=== PATIENT | female | born 1970 | race Caucasian/White ===

== ENCOUNTER 2016-07-20 09:15 | Emergency (ER) | payer BC, OTHER ==
[~2016-07-20 09:15] MED LIST: AZIT250T3 PO; CEFT500T PO; PERCOCET PO; TYLE325T5 PO; no home medications
[2016-07-20] MEDS ORDERED: KETOROLAC 30 MG/ML VIAL (J1885) As Ordered ONE (10:02)
[2016-07-20 10:28] LABS: BASO # 0.1 K/mm3 (0.0-0.2); BASO % 1.1 % (0.0-1.0); EOS # 0.1 K/mm3 (0.0-0.50); EOS % 1.6 % (0.0-3.0); LARGE UNSTAINED CELL # 0.2 K/mm3 (0.0-0.4); LARGE UNSTAINED CELL % 2.8 % (0.0-4.0); LYMPH # 1.7 K/mm3 (1.5-4.5); LYMPH % 25.9 % (24.0-44.0); MEAN CORPUSCULAR HEMOGLOBIN 27.2 pg (27.0-33.0); MEAN CORPUSCULAR HGB CONC 32.1 g/dl (32.0-36.5); MEAN CORPUSCULAR VOLUME 84.9 fl (80.0-96.0); MONO # 0.4 K/mm3 (0.0-0.8); MONO % 5.5 % (0.0-5.0); NEUTROPHILS # 4.2 K/mm3 (1.8-7.7); NEUTROPHILS % 63.2 % (36.0-66.0); PLATELET COUNT, AUTOMATED 375 k/mm3 (150-450); RED CELL DISTRIBUTION WIDTH 11.9 % (11.5-14.5); WHITE BLOOD COUNT 6.6 K/mm3 (4.0-10.0)
[2016-07-20 10:54] LABS: ALBUMIN 4.2 GM/DL (3.2-5.2); ALKALINE PHOSPHATASE 96 U/L (45-117); ALT/SGPT 12 U/L (12-78); ANION GAP 11 MEQ/L (8-16); AST/SGOT 12 U/L (15-37); BILIRUBIN,TOTAL 0.2 MG/DL (0.2-1.0); BLOOD UREA NITROGEN 12 MG/DL (7-18); CALCIUM LEVEL 9.3 MG/DL (8.5-10.1); CARBON DIOXIDE LEVEL 27 MEQ/L (21-32); CHLORIDE LEVEL 103 MEQ/L (98-107); CREATININE FOR GFR 0.85 MG/DL (0.55-1.02); GLOMERULAR FILTRATION RATE > 60.0 (>58); GLUCOSE, FASTING 86 MG/DL (70-105); POTASSIUM SERUM 3.9 MEQ/L (3.5-5.1); SODIUM LEVEL 141 MEQ/L (136-145); TOTAL PROTEIN 8.4 GM/DL (6.4-8.2)
--- NOTE | 2016-07-20 12:28 | EDDOCDS ---
Physician Documentation [facility] Name: Akua Montano Age: 46 yrs Sex: Female : 1970 Arrival Date: 07/20/2016 Time: 09:15 Bed I2 / M2 Private MD: Unknown Pcp Disposition: 07/20/16 12:15 Discharged to Home/Self Care. Impression: Pelvic and perineal pain - suspect prolapse. - Condition is Stable. - Discharge Instructions: Pelvic Pain, Female, Pelvic Organ Prolapse. - Prescriptions for Diclofenac Sodium 75 mg Oral Tablet, Delayed Release (E.C.) - take 1 tablet by ORAL route 2 times per day; 30 tablet. Tramadol 50 mg Oral Tablet - take 1 tablet by ORAL route 4 times per day As needed MDD: 4 tabs; 20 tablet. - Medication Reconciliation, Local Pharmacy Hours form. - Follow up: Kandace Yang MD; When: Call to arrange an appointment; Reason: Further diagnostic work-up, Recheck today's complaints, Continuance of care, To establish care. - Problem is an ongoing problem. - Symptoms are unchanged. Historical: - Allergies: No known drug Allergies; - Home Meds: 1. ranitidine Unknown Oral daily 2. calcium 600 units daily - PMHx: GERD; - PSHx: left foot surgery; - Social history: Smoking status: Patient states was never smoker of tobacco. No barriers to communication noted, The patient speaks fluent Mongolian, Smoking status: Patient states former smoker of tobacco. - Family history: Not pertinent. - : The pt / caregiver states he / she is not on anticoagulants. Home medication list is obtained from the patient. - Exposure Risk Screening:: None identified. 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 5 in. (165.10 cm); Pain 8/10; 11:21 BP 131 / 77; Pulse 75; Resp 20; Temp 97.1; Pulse Ox 99% ; Pain 4/10; jam1 12:26 BP 120 / 74; Pulse 72; Resp 18; Temp 98; mk4 09:17 Body Mass Index 26.46 (72.12 kg, 165.10 cm) cmb MDM: 09:54 ketorolac 30 mg IM once ordered. btw 09:54 -US Pelvic Non-Ob Complete Ordered. EDMS 09:54 DUPLEX SCAN LIMITED (DOPPLER)+US Ordered. EDMS 09:55 Urinalysis Ordered. EDMS 09:55 CBC with Diff Ordered. EDMS 09:55 Complete Comphrensive Metabolic Ordered. EDMS 09:55 Lactic Acid (Mendoza tube on ice) Ordered. EDMS 09:55 Urine Culture Ordered. EDMS 10:51 Transvaginal NON- US Ordered. EDMS 10:58 Financial registration complete. pm4 11:02 Urinalysis Reviewed. btw 11:02 CBC with Diff Reviewed. btw 11:02 Complete Comphrensive Metabolic Reviewed. btw 11:02 Lactic Acid (Mendoza tube on ice) Reviewed. btw 11:24 [facility] Payment Agreement was scanned into [employer]ue and attached to record. mm15 Administered Medications: 10:14 Drug: ketorolac 30 mg [ketorolac 30 mg/mL (1 mL) injection solution (1 mL)] Route: IM; srm Site: right deltoid; 11:00 Follow up: Response: Pain is decreased mk4 Signatures: Dispatcher [employer] EDMS Kezia Holloway RN Magda Bashir RN RN [facility] Michael Koch PA PA btw Berto Grewal mm15 Arlette Prakash RN RN mk4 Gavin Dawson, Reg Reg pm4 The chart was reviewed and I authenticate all verbal orders and agree with the evaluation and treatment provided.Attachments: 11:24 [facility] Payment Agreement mm15 MTDD
--- NOTE | 2016-07-20 12:28 | EDDOCDS ---
Nurse's Notes [facility] Name: Akua Montano Age: 46 yrs Sex: Female : 1970 Arrival Date: 07/20/2016 Time: 09:15 Bed I2 / M2 Private MD: Unknown Pcp Diagnosis: Pelvic and perineal pain-suspect prolapse Presentation: 07/20 09:29 Presenting complaint: Patient states: she has had a lot pain for 3 weeks - saw Dr. westley Pond at [facility] on Tuesday and he thought her uterus and cervix had dropped - had an internal exam done. Risk factors: the patient reports no vaginal bleeding. Adult Sepsis Screening: The patient does not have new or worsening altered mentation. Patient's respiratory rate is less than 22. Systolic blood pressure is greater than 100. Patient has a qSOFA score of 0- Negative Sepsis Screen. Suicide/Homicide risk assessment- the patient denies having any suicidal and/or homicidal ideations and does not present with any other emotional, behavioral or mental health complaints. Status: Patient is not a family service assistant or dependent. Transition of care: patient was not received from another setting of care. 09:29 Acuity: ANEUDY Level 3 kcs 09:29 Method Of Arrival: Walkin/Carried/Asstd kcs Triage Assessment: 09:34 General: Appears uncomfortable, well developed, well nourished, well groomed, Behavior kcs is cooperative, crying, pleasant. Pain: Location: lower abdomen Pain currently is 8 out of 10 on a pain scale. Pt Declines HIV testing. Neurological: Level of Consciousness is awake, alert. Respiratory: Airway is patent Respiratory effort is even, unlabored, Respiratory pattern is regular, symmetrical. Derm: Skin is intact, is healthy with good turgor, Skin is dry, Skin is normal. 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 ranitidine Unknown Oral daily 2. calcium 600 units daily - PMHx: GERD; - PSHx: left foot surgery; - Social history: Smoking status: Patient states was never smoker of tobacco. No barriers to communication noted, The patient speaks fluent Setswana, Smoking status: Patient states former smoker of tobacco. - Family history: Not pertinent. - : The pt / caregiver states he / she is not on anticoagulants. Home medication list is obtained from the patient. - Exposure Risk Screening:: None identified. Screenin:18 Screening information is obtained from the patient. Fall risk: No risks identified. srm Assistance ADL's: requires no assistance with activities of daily living. Abuse/DV Screen: The patient / caregiver reports he/she is: not in a situation that causes fear, pain or injury. Nutritional screening: No deficits noted. Advance Directives: There is no active DNR order. home support is adequate. Assessment: 10:18 General: Appears in no apparent distress, Behavior is appropriate for age, cooperative. srm Neurological: No deficits noted. Cardiovascular: No deficits noted. Respiratory: No deficits noted. Derm: No deficits noted. 10:18 GI: Abdomen is non- distended. srm 11:58 Reassessment: awaiting re eval by PA. General: Appears in no apparent distress, srm Behavior is appropriate for age, cooperative. Pain: Pain currently is 4 out of 10 on a pain scale. 12:26 General: Appears in no apparent distress, comfortable, Behavior is cooperative. GI: mk4 Bowel sounds present X 4 quads. Abd is soft and non tender. Vital Signs: 09:17 BP 152 / 90; Pulse 99; Resp 18; Temp 98.4(O); Pulse Ox 100% ; Weight 72.12 kg; Height 5 cmb ft. 5 in. (165.10 cm); Pain 8/10; 11:21 BP 131 / 77; Pulse 75; Resp 20; Temp 97.1; Pulse Ox 99% ; Pain 4/10; jam1 12:26 BP 120 / 74; Pulse 72; Resp 18; Temp 98; mk4 09:17 Body Mass Index 26.46 (72.12 kg, 165.10 cm) cmb Vitals: 09:17 Log In Time: July 20, 2016 at 09:14. cmb ED Course: 09:16 Patient visited by Eleonora Lock. cmb 09:16 Unknown Pcp is Private Physician. cmb 09:16 Patient moved to Waiting cmb 09:18 Patient moved to Pre RCE cmb 09:32 Triage Initiated kcs 09:39 Patient moved to Triage 1 kcs 09:41 Michael Koch PA is PHCP. btw 09:41 Teresa Smith MD is Attending Physician. btw 09:41 Patient visited by Michael Koch PA. btw 09:57 Patient moved to I2 / M2 bcj 10:18 The patient / caregiver is instructed regarding the plan of care and ED course. srm Accompanied by Family Member, Patient has correct armband on for positive identification. Bed in low position. Call light in reach. 10:18 Lactic Acid (Mendoza tube on ice) Sent. srm 10:18 Complete Comphrensive Metabolic Sent. srm 10:18 CBC with Diff Sent. srm 10:18 Urine Culture Sent. srm 10:18 Urinalysis Sent. srm 10:19 Patient visited by Magda Montenegro, SUZIE. srm 10:49 Patient moved to Ultrasound br3 11:16 Patient moved to I2 / M2 br3 11:24 [facility] Payment Agreement was scanned into [employer] and attached to record. mm15 11:33 Patient visited by Arlette Prakash RN. mk4 11:58 Patient visited by Magda Montenegro, SUZIE. srm 12:15 Kandace Yang MD is Referral Physician. btw 12:26 No IV's were initiated during this patient's visit. No procedures done that require mk4 assistance. Administered Medications: 10:14 Drug: ketorolac 30 mg [ketorolac 30 mg/mL (1 mL) injection solution (1 mL)] Route: IM; [facility] Site: right deltoid; 11:00 Follow up: Response: Pain is decreased mk4 Order Results: Lab Order: Urinalysis; SPEC'M 07/20/16 10:14 Test: APPEARANCE, URINE; Value: CLEAR; Range: CLEAR; Status: F Test: COLOR, URINE; Value: STRAW; Range: YELLOW; Status: F Test: PH,URINE; Value: 5.0; Range: 5.0-9.0; Units: UNITS; Status: F Test: SPECIFIC GRAVITY URINE AUTO; Value: 1.006; Range: 1.002-1.035; Status: F Test: PROTEIN, URINE AUTO; Value: NEGATIVE; Range: NEGATIVE; Units: mg/dL; Status: F Test: GLUCOSE, URINE (UA) AUTO; Value: NEGATIVE; Range: NEGATIVE; Units: mg/dL; Status: F Test: KETONE, URINE AUTO; Value: NEGATIVE; Range: NEGATIVE; Units: mg/dL; Status: F Test: UROBILINOGEN, URINE AUTO; Value: 0.2; Range: 0.0-2.0; Units: mg/dL; Status: F Test: BILIRUBIN, URINE AUTO; Value: NEGATIVE; Range: NEGATIVE; Status: F Test: NITRITE, URINE AUTO; Value: NEGATIVE; Range: NEGATIVE; Status: F Test: LEUKOCYTE ESTERASE, URINE AUTO; Value: NEGATIVE; Range: NEGATIVE; Status: F Test: BLOOD, URINE BLOOD; Value: 2+; Range: NEGATIVE; Abnormal: Above high normal; Status: F Test: WBC, URINE AUTO; Value: 0; Range: 0-3; Units: /HPF; Status: F Test: RBC, URINE AUTO; Value: 1; Range: 0-3; Units: /HPF; Status: F Test: BACTERIA, URINE AUTO; Value: 1+; Range: NEGATIVE; Abnormal: Above high normal; Status: F Test: SQUAMOUS EPITHELIAL CELL UR AU; Value: 0; Range: 0-6; Units: /HPF; Status: F Test: HYALINE CAST, URINE AUTO; Value: 0; Range: 0-1; Units: /LPF; Status: F Lab Order: CBC with Diff; SPEC'M 07/20/16 10:14 Test: WHITE BLOOD COUNT; Value: 6.6; Range: 4.0-10.0; Units: K/mm3; Status: F Test: RED BLOOD COUNT; Value: 4.98; Range: 4.00-5.40; Units: M/mm3; Status: F Test: HEMOGLOBIN; Value: 13.6; Range: 12.0-16.0; Units: g/dl; Status: F Test: HEMATOCRIT; Value: 42.3; Range: 36.0-47.0; Units: %; Status: F Test: MEAN CORPUSCULAR VOLUME; Value: 84.9; Range: 80.0-96.0; Units: fl; Status: F Test: MEAN CORPUSCULAR HEMOGLOBIN; Value: 27.2; Range: 27.0-33.0; Units: pg; Status: F Test: MEAN CORPUSCULAR HGB CONC; Value: 32.1; Range: 32.0-36.5; Units: g/dl; Status: F Test: RED CELL DISTRIBUTION WIDTH; Value: 11.9; Range: 11.5-14.5; Units: %; Status: F Test: PLATELET COUNT, AUTOMATED; Value: 375; Range: 150-450; Units: k/mm3; Status: F Test: NEUTROPHILS %; Value: 63.2; Range: 36.0-66.0; Units: %; Status: F Test: LYMPH %; Value: 25.9; Range: 24.0-44.0; Units: %; Status: F Test: MONO %; Value: 5.5; Range: 0.0-5.0; Abnormal: Above high normal; Units: %; Status: F Test: EOS %; Value: 1.6; Range: 0.0-3.0; Units: %; Status: F Test: BASO %; Value: 1.1; Range: 0.0-1.0; Abnormal: Above high normal; Units: %; Status: F Test: LARGE UNSTAINED CELL %; Value: 2.8; Range: 0.0-4.0; Units: %; Status: F Test: NEUTROPHILS #; Value: 4.2; Range: 1.8-7.7; Units: K/mm3; Status: F Test: LYMPH #; Value: 1.7; Range: 1.5-4.5; Units: K/mm3; Status: F Test: MONO #; Value: 0.4; Range: 0.0-0.8; Units: K/mm3; Status: F Test: EOS #; Value: 0.1; Range: 0.0-0.50; Units: K/mm3; Status: F Test: BASO #; Value: 0.1; Range: 0.0-0.2; Units: K/mm3; Status: F Test: LARGE UNSTAINED CELL #; Value: 0.2; Range: 0.0-0.4; Units: K/mm3; Status: F Lab Order: Complete Comphrensive Metabolic; SPEC'M 07/20/16 10:14 Test: GLUCOSE, FASTING; Value: 86; Range: 70-105; Units: MG/DL; Status: F Test: BLOOD UREA NITROGEN; Value: 12; Range: 7-18; Units: MG/DL; Status: F Test: CREATININE FOR GFR; Value: 0.85; Range: 0.55-1.02; Units: MG/DL; Status: F Test: GLOMERULAR FILTRATION RATE; Value: > 60.0; Range: >58; Status: F Test: SODIUM LEVEL; Value: 141; Range: 136-145; Units: MEQ/L; Status: F Test: POTASSIUM SERUM; Value: 3.9; Range: 3.5-5.1; Units: MEQ/L; Status: F Test: CHLORIDE LEVEL; Value: 103; Range: 98-107; Units: MEQ/L; Status: F Test: CARBON DIOXIDE LEVEL; Value: 27; Range: 21-32; Units: MEQ/L; Status: F Test: ANION GAP; Value: 11; Range: 8-16; Units: MEQ/L; Status: F Test: CALCIUM LEVEL; Value: 9.3; Range: 8.5-10.1; Units: MG/DL; Status: F Test: AST/SGOT; Value: 12; Range: 15-37; Abnormal: Below low normal; Units: U/L; Status: F Test: ALT/SGPT; Value: 12; Range: 12-78; Units: U/L; Status: F Test: ALKALINE PHOSPHATASE; Value: 96; Range: 45-117; Units: U/L; Status: F Test: BILIRUBIN,TOTAL; Value: 0.2; Range: 0.2-1.0; Units: MG/DL; Status: F Test: TOTAL PROTEIN; Value: 8.4; Range: 6.4-8.2; Abnormal: Above high normal; Units: GM/DL; Status: F Test: ALBUMIN; Value: 4.2; Range: 3.2-5.2; Units: GM/DL; Status: F Test: ALBUMIN/GLOBULIN RATIO; Value: 1.00; Range: 1.00-1.93; Status: F Test Note: ; Units are mL/min/1.73 m2 Chronic Kidney Disease Staging per NKF: Stage I & II GFR >=60 Normal to Mildly Decreased Stage III GFR 30-59 Moderately Decreased Stage IV GFR 15-29 Severely Decreased Stage V GFR <15 Very Little GFR Left ESRD GFR <15 on CIRCULAR [place]ER STONE Lab Order: Lactic Acid (Mendoza tube on ice); SPEC'M 07/20/16 10:14 Test: LACTIC ACID LEVEL, LACTATE; Value: 1.2; Range: 0.4-2.0; Units: MMOL/L; Status: F Outcome: 12:15 Discharge ordered by Provider. btw 12:26 Discharge Assessment: Patient awake, alert and oriented x 3. No cognitive and/or mk4 functional deficits noted. Patient verbalized understanding of disposition instructions. Patient awake and alert. Discharge Assessment: patient administered narcotics - no. The following High Risk Discharge criteria are identified: None. Discharged to home ambulatory. Condition: good Condition: stable. No special radiology studies were completed. Property sent home with patient. 12:28 Patient left the ED. mk4 Signatures: Kezia Holloway, RN RN Velasquez Rose, RN RN Magda Crouch, RN RN Moni Price, BRICK PITCHER BRICK PITCHER jam1 Randee Huang br3 Michael Koch PA PA btEleonora Gibbs Marlynn mm15 Arlette Prakash, RN RN mk4 DIXIE
--- NOTE | 2016-07-20 16:23 | REP ---
PELVIC ULTRASOUND: Real-time sonographic evaluation of the pelvis was performed utilizing transabdominal and endovaginal technique. The bladder measures 3.8 x 5.6 x 2.4 m. The uterus measures 8.2 x 4.5 x 5.8 cm. Endometrium is heterogenous in echotexture with ill-defined margins and tiny cystic areas. Findings may represent adenomyosis. Thickness is 10 mm. The uterus is retroverted. Ovaries are normal in size and echotexture, right ovary measuring 2.4 x 1.1 x 1.4 cm and the left ovary measuring 2.4 x 2.0 x 1.9 cm. There is no adnexal mass. There is no free fluid. There is no torsion with blood flow seen in each ovary with duplex Doppler evaluation, RI of the right ovary 0.63 and left ovary 0.56. IMPRESSION: Endometrium ill-defined with tiny cystic areas, possibly indicating adenomyosis. No adnexal mass or free fluid. No evidence of ovarian torsion. Signed by Adriel Mendoza MD 07/21/2016 05:08 P
--- NOTE | 2016-07-22 13:29 | EDDOCDS ---
Nurse's Notes [facility] Name: Akua Montano Age: 46 yrs Sex: Female : 1970 Arrival Date: 07/20/2016 Time: 09:15 Bed I2 / M2 Private MD: Unknown Pcp Diagnosis: Pelvic and perineal pain-suspect prolapse Presentation: 07/20 09:29 Presenting complaint: Patient states: she has had a lot pain for 3 weeks - saw Dr. westley Pond at [facility] on Tuesday and he thought her uterus and cervix had dropped - had an internal exam done. Risk factors: the patient reports no vaginal bleeding. Adult Sepsis Screening: The patient does not have new or worsening altered mentation. Patient's respiratory rate is less than 22. Systolic blood pressure is greater than 100. Patient has a qSOFA score of 0- Negative Sepsis Screen. Suicide/Homicide risk assessment- the patient denies having any suicidal and/or homicidal ideations and does not present with any other emotional, behavioral or mental health complaints. Status: Patient is not a extension service specialist in charge or dependent. Transition of care: patient was not received from another setting of care. 09:29 Acuity: ANEUYD Level 3 kcs 09:29 Method Of Arrival: Walkin/Carried/Asstd kcs Triage Assessment: 09:34 General: Appears uncomfortable, well developed, well nourished, well groomed, Behavior kcs is cooperative, crying, pleasant. Pain: Location: lower abdomen Pain currently is 8 out of 10 on a pain scale. Pt Declines HIV testing. Neurological: Level of Consciousness is awake, alert. Respiratory: Airway is patent Respiratory effort is even, unlabored, Respiratory pattern is regular, symmetrical. Derm: Skin is intact, is healthy with good turgor, Skin is dry, Skin is normal. 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 ranitidine Unknown Oral daily 2. calcium 600 units daily - PMHx: GERD; - PSHx: left foot surgery; - Social history: Smoking status: Patient states was never smoker of tobacco. No barriers to communication noted, The patient speaks fluent Syriac, Smoking status: Patient states former smoker of tobacco. - Family history: Not pertinent. - : The pt / caregiver states he / she is not on anticoagulants. Home medication list is obtained from the patient. - Exposure Risk Screening:: None identified. Screenin:18 Screening information is obtained from the patient. Fall risk: No risks identified. srm Assistance ADL's: requires no assistance with activities of daily living. Abuse/DV Screen: The patient / caregiver reports he/she is: not in a situation that causes fear, pain or injury. Nutritional screening: No deficits noted. Advance Directives: There is no active DNR order. home support is adequate. Assessment: 10:18 General: Appears in no apparent distress, Behavior is appropriate for age, cooperative. srm Neurological: No deficits noted. Cardiovascular: No deficits noted. Respiratory: No deficits noted. Derm: No deficits noted. 10:18 GI: Abdomen is non- distended. srm 11:58 Reassessment: awaiting re eval by PA. General: Appears in no apparent distress, srm Behavior is appropriate for age, cooperative. Pain: Pain currently is 4 out of 10 on a pain scale. 12:26 General: Appears in no apparent distress, comfortable, Behavior is cooperative. GI: mk4 Bowel sounds present X 4 quads. Abd is soft and non tender. Vital Signs: 09:17 BP 152 / 90; Pulse 99; Resp 18; Temp 98.4(O); Pulse Ox 100% ; Weight 72.12 kg; Height 5 cmb ft. 5 in. (165.10 cm); Pain 8/10; 11:21 BP 131 / 77; Pulse 75; Resp 20; Temp 97.1; Pulse Ox 99% ; Pain 4/10; jam1 12:26 BP 120 / 74; Pulse 72; Resp 18; Temp 98; mk4 09:17 Body Mass Index 26.46 (72.12 kg, 165.10 cm) cmb Vitals: 09:17 Log In Time: July 20, 2016 at 09:14. cmb ED Course: 09:16 Patient visited by Eelonora Lock. cmb 09:16 Unknown Pcp is Private Physician. cmb 09:16 Patient moved to Waiting cmb 09:18 Patient moved to Pre RCE cmb 09:32 Triage Initiated kcs 09:39 Patient moved to Triage 1 kcs 09:41 Michael Koch PA is PHCP. btw 09:41 Teresa Smith MD is Attending Physician. btw 09:41 Patient visited by Michael Koch PA. btw 09:57 Patient moved to I2 / M2 bcj 10:18 The patient / caregiver is instructed regarding the plan of care and ED course. srm Accompanied by Family Member, Patient has correct armband on for positive identification. Bed in low position. Call light in reach. 10:18 Lactic Acid (Mendoza tube on ice) Sent. srm 10:18 Complete Comphrensive Metabolic Sent. srm 10:18 CBC with Diff Sent. srm 10:18 Urine Culture Sent. srm 10:18 Urinalysis Sent. srm 10:19 Patient visited by Magda Montenegro, SUZIE. srm 10:49 Patient moved to Ultrasound br3 11:16 Patient moved to I2 / M2 br3 11:24 [facility] Payment Agreement was scanned into [employer] and attached to record. mm15 11:33 Patient visited by Arlette Prakash RN. mk4 11:58 Patient visited by Magda Montenegro, SUZIE. srm 12:15 Kandace Yang MD is Referral Physician. btw 12:26 No IV's were initiated during this patient's visit. No procedures done that require mk4 assistance. 16:37 -US Pelvic Non-Ob Complete Returned. EDMS 16:37 DUPLEX SCAN LIMITED (DOPPLER)+US Returned. EDMS 16:37 Transvaginal NON- US Returned. EDMS 07/21 12:39 T-Sheet-- Draft Copy was scanned into [employer] and attached to record. gb Administered Medications: 07/20 10:14 Drug: ketorolac 30 mg [ketorolac 30 mg/mL (1 mL) injection solution (1 mL)] Route: IM; [facility] Site: right deltoid; 11:00 Follow up: Response: Pain is decreased mk4 Order Results: Lab Order: Urinalysis; SPEC'M 07/20/16 10:14 Test: APPEARANCE, URINE; Value: CLEAR; Range: CLEAR; Status: F Test: COLOR, URINE; Value: STRAW; Range: YELLOW; Status: F Test: PH,URINE; Value: 5.0; Range: 5.0-9.0; Units: UNITS; Status: F Test: SPECIFIC GRAVITY URINE AUTO; Value: 1.006; Range: 1.002-1.035; Status: F Test: PROTEIN, URINE AUTO; Value: NEGATIVE; Range: NEGATIVE; Units: mg/dL; Status: F Test: GLUCOSE, URINE (UA) AUTO; Value: NEGATIVE; Range: NEGATIVE; Units: mg/dL; Status: F Test: KETONE, URINE AUTO; Value: NEGATIVE; Range: NEGATIVE; Units: mg/dL; Status: F Test: UROBILINOGEN, URINE AUTO; Value: 0.2; Range: 0.0-2.0; Units: mg/dL; Status: F Test: BILIRUBIN, URINE AUTO; Value: NEGATIVE; Range: NEGATIVE; Status: F Test: NITRITE, URINE AUTO; Value: NEGATIVE; Range: NEGATIVE; Status: F Test: LEUKOCYTE ESTERASE, URINE AUTO; Value: NEGATIVE; Range: NEGATIVE; Status: F Test: BLOOD, URINE BLOOD; Value: 2+; Range: NEGATIVE; Abnormal: Above high normal; Status: F Test: WBC, URINE AUTO; Value: 0; Range: 0-3; Units: /HPF; Status: F Test: RBC, URINE AUTO; Value: 1; Range: 0-3; Units: /HPF; Status: F Test: BACTERIA, URINE AUTO; Value: 1+; Range: NEGATIVE; Abnormal: Above high normal; Status: F Test: SQUAMOUS EPITHELIAL CELL UR AU; Value: 0; Range: 0-6; Units: /HPF; Status: F Test: HYALINE CAST, URINE AUTO; Value: 0; Range: 0-1; Units: /LPF; Status: F Lab Order: Urine Culture; SPEC'M 07/20/16 10:14 Test: URINE CULTURE; Value: URINE CULTURE RESULT NO GROWTH; Status: F Lab Order: CBC with Diff; SPEC'M 07/20/16 10:14 Test: WHITE BLOOD COUNT; Value: 6.6; Range: 4.0-10.0; Units: K/mm3; Status: F Test: RED BLOOD COUNT; Value: 4.98; Range: 4.00-5.40; Units: M/mm3; Status: F Test: HEMOGLOBIN; Value: 13.6; Range: 12.0-16.0; Units: g/dl; Status: F Test: HEMATOCRIT; Value: 42.3; Range: 36.0-47.0; Units: %; Status: F Test: MEAN CORPUSCULAR VOLUME; Value: 84.9; Range: 80.0-96.0; Units: fl; Status: F Test: MEAN CORPUSCULAR HEMOGLOBIN; Value: 27.2; Range: 27.0-33.0; Units: pg; Status: F Test: MEAN CORPUSCULAR HGB CONC; Value: 32.1; Range: 32.0-36.5; Units: g/dl; Status: F Test: RED CELL DISTRIBUTION WIDTH; Value: 11.9; Range: 11.5-14.5; Units: %; Status: F Test: PLATELET COUNT, AUTOMATED; Value: 375; Range: 150-450; Units: k/mm3; Status: F Test: NEUTROPHILS %; Value: 63.2; Range: 36.0-66.0; Units: %; Status: F Test: LYMPH %; Value: 25.9; Range: 24.0-44.0; Units: %; Status: F Test: MONO %; Value: 5.5; Range: 0.0-5.0; Abnormal: Above high normal; Units: %; Status: F Test: EOS %; Value: 1.6; Range: 0.0-3.0; Units: %; Status: F Test: BASO %; Value: 1.1; Range: 0.0-1.0; Abnormal: Above high normal; Units: %; Status: F Test: LARGE UNSTAINED CELL %; Value: 2.8; Range: 0.0-4.0; Units: %; Status: F Test: NEUTROPHILS #; Value: 4.2; Range: 1.8-7.7; Units: K/mm3; Status: F Test: LYMPH #; Value: 1.7; Range: 1.5-4.5; Units: K/mm3; Status: F Test: MONO #; Value: 0.4; Range: 0.0-0.8; Units: K/mm3; Status: F Test: EOS #; Value: 0.1; Range: 0.0-0.50; Units: K/mm3; Status: F Test: BASO #; Value: 0.1; Range: 0.0-0.2; Units: K/mm3; Status: F Test: LARGE UNSTAINED CELL #; Value: 0.2; Range: 0.0-0.4; Units: K/mm3; Status: F Lab Order: Complete Comphrensive Metabolic; SPEC'M 07/20/16 10:14 Test: GLUCOSE, FASTING; Value: 86; Range: 70-105; Units: MG/DL; Status: F Test: BLOOD UREA NITROGEN; Value: 12; Range: 7-18; Units: MG/DL; Status: F Test: CREATININE FOR GFR; Value: 0.85; Range: 0.55-1.02; Units: MG/DL; Status: F Test: GLOMERULAR FILTRATION RATE; Value: > 60.0; Range: >58; Status: F Test: SODIUM LEVEL; Value: 141; Range: 136-145; Units: MEQ/L; Status: F Test: POTASSIUM SERUM; Value: 3.9; Range: 3.5-5.1; Units: MEQ/L; Status: F Test: CHLORIDE LEVEL; Value: 103; Range: 98-107; Units: MEQ/L; Status: F Test: CARBON DIOXIDE LEVEL; Value: 27; Range: 21-32; Units: MEQ/L; Status: F Test: ANION GAP; Value: 11; Range: 8-16; Units: MEQ/L; Status: F Test: CALCIUM LEVEL; Value: 9.3; Range: 8.5-10.1; Units: MG/DL; Status: F Test: AST/SGOT; Value: 12; Range: 15-37; Abnormal: Below low normal; Units: U/L; Status: F Test: ALT/SGPT; Value: 12; Range: 12-78; Units: U/L; Status: F Test: ALKALINE PHOSPHATASE; Value: 96; Range: 45-117; Units: U/L; Status: F Test: BILIRUBIN,TOTAL; Value: 0.2; Range: 0.2-1.0; Units: MG/DL; Status: F Test: TOTAL PROTEIN; Value: 8.4; Range: 6.4-8.2; Abnormal: Above high normal; Units: GM/DL; Status: F Test: ALBUMIN; Value: 4.2; Range: 3.2-5.2; Units: GM/DL; Status: F Test: ALBUMIN/GLOBULIN RATIO; Value: 1.00; Range: 1.00-1.93; Status: F Test Note: ; Units are mL/min/1.73 m2 Chronic Kidney Disease Staging per NKF: Stage I & II GFR >=60 Normal to Mildly Decreased Stage III GFR 30-59 Moderately Decreased Stage IV GFR 15-29 Severely Decreased Stage V GFR <15 Very Little GFR Left ESRD GFR <15 on 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 prolapse;Adnexal Pain r/o Torsion; PELVIC ULTRASOUND:; ; Real-time sonographic evaluation of the pelvis was performed utilizing; transabdominal and endovaginal technique.; ; The bladder measures 3.8 x 5.6 x 2.4 m. The uterus measures 8.2 x 4.5 x 5.8 cm.; Endometrium is heterogenous in echotexture with ill-defined margins and tiny; cystic areas. Findings may represent adenomyosis. Thickness is 10 mm. The uterus; is retroverted. Ovaries are normal in size and echotexture, right ovary measuring; 2.4 x 1.1 x 1.4 cm and the left ovary measuring 2.4 x 2.0 x 1.9 cm. There is no; adnexal mass. There is no free fluid. There is no torsion with blood flow seen in; each ovary with duplex Doppler evaluation, RI of the right ovary 0.63 and left; ovary 0.56.; ; IMPRESSION:; ; Endometrium ill-defined with tiny cystic areas, possibly indicating adenomyosis.; ; ; No adnexal mass or free fluid. No evidence of ovarian torsion.; ; ; Signed by; Adriel Mendoza MD 07/21/2016 05:08 P; Radiology Order: DUPLEX SCAN LIMITED (DOPPLER)+US Test: DUPLEX SCAN LIMITED (DOPPLER)+US REASON FOR EXAMINATION: ? prolapse;Adnexal Pain r/o Torsion; PELVIC ULTRASOUND:; ; Real-time sonographic evaluation of the pelvis was performed utilizing; transabdominal and endovaginal technique.; ; The bladder measures 3.8 x 5.6 x 2.4 m. The uterus measures 8.2 x 4.5 x 5.8 cm.; Endometrium is heterogenous in echotexture with ill-defined margins and tiny; cystic areas. Findings may represent adenomyosis. Thickness is 10 mm. The uterus; is retroverted. Ovaries are normal in size and echotexture, right ovary measuring; 2.4 x 1.1 x 1.4 cm and the left ovary measuring 2.4 x 2.0 x 1.9 cm. There is no; adnexal mass. There is no free fluid. There is no torsion with blood flow seen in; each ovary with duplex Doppler evaluation, RI of the right ovary 0.63 and left; ovary 0.56.; ; IMPRESSION:; ; Endometrium ill-defined with tiny cystic areas, possibly indicating adenomyosis.; ; ; No adnexal mass or free fluid. No evidence of ovarian torsion.; ; ; Signed by; Adriel Mendoza MD 07/21/2016 05:08 P; Radiology Order: Transvaginal NON- US Test: Transvaginal NON- US REASON FOR EXAMINATION: EVAL UTERUS AND OVARIES; PELVIC ULTRASOUND:; ; Real-time sonographic evaluation of the pelvis was performed utilizing; transabdominal and endovaginal technique.; ; The bladder measures 3.8 x 5.6 x 2.4 m. The uterus measures 8.2 x 4.5 x 5.8 cm.; Endometrium is heterogenous in echotexture with ill-defined margins and tiny; cystic areas. Findings may represent adenomyosis. Thickness is 10 mm. The uterus; is retroverted. Ovaries are normal in size and echotexture, right ovary measuring; 2.4 x 1.1 x 1.4 cm and the left ovary measuring 2.4 x 2.0 x 1.9 cm. There is no; adnexal mass. There is no free fluid. There is no torsion with blood flow seen in; each ovary with duplex Doppler evaluation, RI of the right ovary 0.63 and left; ovary 0.56.; ; IMPRESSION:; ; Endometrium ill-defined with tiny cystic areas, possibly indicating adenomyosis.; ; ; No adnexal mass or free fluid. No evidence of ovarian torsion.; ; ; Signed by; Adriel Mendoza MD 07/21/2016 05:08 P; Outcome: 12:15 Discharge ordered by Provider. btw 12:26 Discharge Assessment: Patient awake, alert and oriented x 3. No cognitive and/or mk4 functional deficits noted. Patient verbalized understanding of disposition instructions. Patient awake and alert. Discharge Assessment: patient administered narcotics - no. The following High Risk Discharge criteria are identified: None. Discharged to home ambulatory. Condition: good Condition: stable. No special radiology studies were completed. Property sent home with patient. 12:28 Patient left the ED. mk4 Signatures: Dispatcher [employer] EDKezia Schumacher, RN RN Velasquez Rose RN RN bcj Michelson, Staci RN RN Moni Price, LI MAIL TRUCK DRIVER jam1 Kathia Reid, Reg Reg gb Randee Huang br3 Michael Koch PA PA btw Boshart, Chelsea cmb McGrath, Marlynn mm15 Arlette Prakash, RN RN mk4 Chart Complete MTDRamon
--- NOTE | 2016-07-22 13:29 | EDDOCDS ---
Physician Documentation [facility] Name: Akua Montano Age: 46 yrs Sex: Female : 1970 Arrival Date: 07/20/2016 Time: 09:15 Bed I2 / M2 Private MD: Unknown Pcp Disposition: 07/20/16 12:15 Discharged to Home/Self Care. Impression: Pelvic and perineal pain - suspect prolapse. - Condition is Stable. - Discharge Instructions: Pelvic Pain, Female, Pelvic Organ Prolapse. - Prescriptions for Diclofenac Sodium 75 mg Oral Tablet, Delayed Release (E.C.) - take 1 tablet by ORAL route 2 times per day; 30 tablet. Tramadol 50 mg Oral Tablet - take 1 tablet by ORAL route 4 times per day As needed MDD: 4 tabs; 20 tablet. - Medication Reconciliation, Local Pharmacy Hours form. - Follow up: Kandace Yang MD; When: Call to arrange an appointment; Reason: Further diagnostic work-up, Recheck today's complaints, Continuance of care, To establish care. - Problem is an ongoing problem. - Symptoms are unchanged. Historical: - Allergies: No known drug Allergies; - Home Meds: 1. ranitidine Unknown Oral daily 2. calcium 600 units daily - PMHx: GERD; - PSHx: left foot surgery; - Social history: Smoking status: Patient states was never smoker of tobacco. No barriers to communication noted, The patient speaks fluent Divehi, Smoking status: Patient states former smoker of tobacco. - Family history: Not pertinent. - : The pt / caregiver states he / she is not on anticoagulants. Home medication list is obtained from the patient. - Exposure Risk Screening:: None identified. 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 5 in. (165.10 cm); Pain 8/10; 11:21 BP 131 / 77; Pulse 75; Resp 20; Temp 97.1; Pulse Ox 99% ; Pain 4/10; jam1 12:26 BP 120 / 74; Pulse 72; Resp 18; Temp 98; mk4 09:17 Body Mass Index 26.46 (72.12 kg, 165.10 cm) cmb MDM: 09:54 ketorolac 30 mg IM once ordered. btw 09:54 -US Pelvic Non-Ob Complete Ordered. EDMS 09:54 DUPLEX SCAN LIMITED (DOPPLER)+US Ordered. EDMS 09:55 Urinalysis Ordered. EDMS 09:55 CBC with Diff Ordered. EDMS 09:55 Complete Comphrensive Metabolic Ordered. EDMS 09:55 Lactic Acid (Mendoza tube on ice) Ordered. EDMS 09:55 Urine Culture Ordered. EDMS 10:51 Transvaginal NON- US Ordered. EDMS 10:58 Financial registration complete. pm4 11:02 Urinalysis Reviewed. btw 11:02 CBC with Diff Reviewed. btw 11:02 Complete Comphrensive Metabolic Reviewed. btw 11:02 Lactic Acid (Mendoza tube on ice) Reviewed. btw 11:24 [facility] Payment Agreement was scanned into [employer] and attached to record. mm15 07/21 12:39 T-Sheet-- Draft Copy was scanned into [employer] and attached to record. gb Administered Medications: 07/20 10:14 Drug: ketorolac 30 mg [ketorolac 30 mg/mL (1 mL) injection solution (1 mL)] Route: IM; srm Site: right deltoid; 11:00 Follow up: Response: Pain is decreased columba Signatures: Dispatcher [employer] Kezia Kirby RN RN [facility] Magda Montenegro RN RN srm Kathia Reid, Reg Reg gb Michael Koch PA PA btw Berto Grewal mm15 Arlette Prakash RN RN mk4 Gavin Dawson, Reg Reg pm4 The chart was reviewed and I authenticate all verbal orders and agree with the evaluation and treatment provided.Attachments: 11:24 [facility] Payment Agreement mm15 07/21 12:39 T-Sheet-- Draft Copy gb Chart Complete MTDD
--- NOTE | 2016-07-22 13:29 | EDDOCDS ---
Physician Documentation [facility] Name: Akua Montano Age: 46 yrs Sex: Female : 1970 Arrival Date: 07/20/2016 Time: 09:15 Bed I2 / M2 Private MD: Unknown Pcp Disposition: 07/20/16 12:15 Discharged to Home/Self Care. Impression: Pelvic and perineal pain - suspect prolapse. - Condition is Stable. - Discharge Instructions: Pelvic Pain, Female, Pelvic Organ Prolapse. - Prescriptions for Diclofenac Sodium 75 mg Oral Tablet, Delayed Release (E.C.) - take 1 tablet by ORAL route 2 times per day; 30 tablet. Tramadol 50 mg Oral Tablet - take 1 tablet by ORAL route 4 times per day As needed MDD: 4 tabs; 20 tablet. - Medication Reconciliation, Local Pharmacy Hours form. - Follow up: Kandace Yang MD; When: Call to arrange an appointment; Reason: Further diagnostic work-up, Recheck today's complaints, Continuance of care, To establish care. - Problem is an ongoing problem. - Symptoms are unchanged. Historical: - Allergies: No known drug Allergies; - Home Meds: 1. ranitidine Unknown Oral daily 2. calcium 600 units daily - PMHx: GERD; - PSHx: left foot surgery; - Social history: Smoking status: Patient states was never smoker of tobacco. No barriers to communication noted, The patient speaks fluent Albanian, Smoking status: Patient states former smoker of tobacco. - Family history: Not pertinent. - : The pt / caregiver states he / she is not on anticoagulants. Home medication list is obtained from the patient. - Exposure Risk Screening:: None identified. 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 5 in. (165.10 cm); Pain 8/10; 11:21 BP 131 / 77; Pulse 75; Resp 20; Temp 97.1; Pulse Ox 99% ; Pain 4/10; jam1 12:26 BP 120 / 74; Pulse 72; Resp 18; Temp 98; mk4 09:17 Body Mass Index 26.46 (72.12 kg, 165.10 cm) cmb MDM: 09:54 ketorolac 30 mg IM once ordered. btw 09:54 -US Pelvic Non-Ob Complete Ordered. EDMS 09:54 DUPLEX SCAN LIMITED (DOPPLER)+US Ordered. EDMS 09:55 Urinalysis Ordered. EDMS 09:55 CBC with Diff Ordered. EDMS 09:55 Complete Comphrensive Metabolic Ordered. EDMS 09:55 Lactic Acid (Mendoza tube on ice) Ordered. EDMS 09:55 Urine Culture Ordered. EDMS 10:51 Transvaginal NON- US Ordered. EDMS 10:58 Financial registration complete. pm4 11:02 Urinalysis Reviewed. btw 11:02 CBC with Diff Reviewed. btw 11:02 Complete Comphrensive Metabolic Reviewed. btw 11:02 Lactic Acid (Mendoza tube on ice) Reviewed. btw 11:24 [facility] Payment Agreement was scanned into [employer] and attached to record. mm15 07/21 12:39 T-Sheet-- Draft Copy was scanned into [employer] and attached to record. gb Administered Medications: 07/20 10:14 Drug: ketorolac 30 mg [ketorolac 30 mg/mL (1 mL) injection solution (1 mL)] Route: IM; srm Site: right deltoid; 11:00 Follow up: Response: Pain is decreased columba Signatures: Dispatcher [employer] Kezia Kirby RN RN [facility] Magda Montenegro RN RN srm Kathia Reid, Reg Reg gb Michael Koch PA PA btw Berto Grewal mm15 Arlette Prakash RN RN mk4 Gavin Dawson, Reg Reg pm4 The chart was reviewed and I authenticate all verbal orders and agree with the evaluation and treatment provided.Attachments: 11:24 [facility] Payment Agreement mm15 07/21 12:39 T-Sheet-- Draft Copy gb Chart Complete MTDD
--- NOTE | 2016-07-23 21:21 | EDDOCDS ---
Physician Documentation [facility] Name: Akua Montano Age: 46 yrs Sex: Female : 1970 Arrival Date: 07/20/2016 Time: 09:15 Bed I2 / M2 Private MD: Unknown Pcp Disposition: 07/20/16 12:15 Discharged to Home/Self Care. Impression: Pelvic and perineal pain - suspect prolapse. - Condition is Stable. - Discharge Instructions: Pelvic Pain, Female, Pelvic Organ Prolapse. - Prescriptions for Diclofenac Sodium 75 mg Oral Tablet, Delayed Release (E.C.) - take 1 tablet by ORAL route 2 times per day; 30 tablet. Tramadol 50 mg Oral Tablet - take 1 tablet by ORAL route 4 times per day As needed MDD: 4 tabs; 20 tablet. - Medication Reconciliation, Local Pharmacy Hours form. - Follow up: Kandace Loomis MD; When: Call to arrange an appointment; Reason: Further diagnostic work-up, Recheck today's complaints, Continuance of care, To establish care. - Problem is an ongoing problem. - Symptoms are unchanged. Historical: - Allergies: No known drug Allergies; - Home Meds: 1. ranitidine Unknown Oral daily 2. calcium 600 units daily - PMHx: GERD; - PSHx: left foot surgery; - Social history: Smoking status: Patient states was never smoker of tobacco. No barriers to communication noted, The patient speaks fluent French, Smoking status: Patient states former smoker of tobacco. - Family history: Not pertinent. - : The pt / caregiver states he / she is not on anticoagulants. Home medication list is obtained from the patient. - Exposure Risk Screening:: None identified. 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 5 in. (165.10 cm); Pain 8/10; 11:21 BP 131 / 77; Pulse 75; Resp 20; Temp 97.1; Pulse Ox 99% ; Pain 4/10; jam1 12:26 BP 120 / 74; Pulse 72; Resp 18; Temp 98; mk4 09:17 Body Mass Index 26.46 (72.12 kg, 165.10 cm) cmb MDM: 09:54 ketorolac 30 mg IM once ordered. btw 09:54 -US Pelvic Non-Ob Complete Ordered. EDMS 09:54 DUPLEX SCAN LIMITED (DOPPLER)+US Ordered. EDMS 09:55 Urinalysis Ordered. EDMS 09:55 CBC with Diff Ordered. EDMS 09:55 Complete Comphrensive Metabolic Ordered. EDMS 09:55 Lactic Acid (Mendoza tube on ice) Ordered. EDMS 09:55 Urine Culture Ordered. EDMS 10:51 Transvaginal NON- US Ordered. EDMS 10:58 Financial registration complete. pm4 11:02 Urinalysis Reviewed. btw 11:02 CBC with Diff Reviewed. btw 11:02 Complete Comphrensive Metabolic Reviewed. btw 11:02 Lactic Acid (Mendoza tube on ice) Reviewed. btw 11:24 [facility] Payment Agreement was scanned into [employer] and attached to record. mm15 07/21 12:39 T-Sheet-- Draft Copy was scanned into [employer] and attached to record. gb Administered Medications: 07/20 10:14 Drug: ketorolac 30 mg [ketorolac 30 mg/mL (1 mL) injection solution (1 mL)] Route: IM; srm Site: right deltoid; 11:00 Follow up: Response: Pain is decreased 4 Addendum: 07/23/2016 21:20 Radiology Callback: Radiology results faxed to primary care physician/provider. dr jessica loomis faxed formal report of pevlic us for fu nmlg. Signatures: Dispatcher [facility] Nicci Andrea MD MD ml Sleeman, Kacey, RN RN Magda Andersen RN RN [facility] Kathia Reid, Reg Reg gb Michael Koch PA PA btw Berto Grewal mm15 Arlette Prakash RN RN 4 Gavin Dawson, Reg Reg pm4 The chart was reviewed and I authenticate all verbal orders and agree with the evaluation and treatment provided.Attachments: 07/20 11:24 [facility] Payment Agreement mm15 07/21 12:39 T-Sheet-- Draft Copy gb MTDD
--- NOTE | 2016-07-23 21:21 | EDDOCDS ---
Physician Documentation [facility] Name: Akua Montano Age: 46 yrs Sex: Female : 1970 Arrival Date: 07/20/2016 Time: 09:15 Bed I2 / M2 Private MD: Unknown Pcp Disposition: 07/20/16 12:15 Discharged to Home/Self Care. Impression: Pelvic and perineal pain - suspect prolapse. - Condition is Stable. - Discharge Instructions: Pelvic Pain, Female, Pelvic Organ Prolapse. - Prescriptions for Diclofenac Sodium 75 mg Oral Tablet, Delayed Release (E.C.) - take 1 tablet by ORAL route 2 times per day; 30 tablet. Tramadol 50 mg Oral Tablet - take 1 tablet by ORAL route 4 times per day As needed MDD: 4 tabs; 20 tablet. - Medication Reconciliation, Local Pharmacy Hours form. - Follow up: Kandace Loomis MD; When: Call to arrange an appointment; Reason: Further diagnostic work-up, Recheck today's complaints, Continuance of care, To establish care. - Problem is an ongoing problem. - Symptoms are unchanged. Historical: - Allergies: No known drug Allergies; - Home Meds: 1. ranitidine Unknown Oral daily 2. calcium 600 units daily - PMHx: GERD; - PSHx: left foot surgery; - Social history: Smoking status: Patient states was never smoker of tobacco. No barriers to communication noted, The patient speaks fluent Maltese, Smoking status: Patient states former smoker of tobacco. - Family history: Not pertinent. - : The pt / caregiver states he / she is not on anticoagulants. Home medication list is obtained from the patient. - Exposure Risk Screening:: None identified. 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 5 in. (165.10 cm); Pain 8/10; 11:21 BP 131 / 77; Pulse 75; Resp 20; Temp 97.1; Pulse Ox 99% ; Pain 4/10; jam1 12:26 BP 120 / 74; Pulse 72; Resp 18; Temp 98; mk4 09:17 Body Mass Index 26.46 (72.12 kg, 165.10 cm) cmb MDM: 09:54 ketorolac 30 mg IM once ordered. btw 09:54 -US Pelvic Non-Ob Complete Ordered. EDMS 09:54 DUPLEX SCAN LIMITED (DOPPLER)+US Ordered. EDMS 09:55 Urinalysis Ordered. EDMS 09:55 CBC with Diff Ordered. EDMS 09:55 Complete Comphrensive Metabolic Ordered. EDMS 09:55 Lactic Acid (Mendoza tube on ice) Ordered. EDMS 09:55 Urine Culture Ordered. EDMS 10:51 Transvaginal NON- US Ordered. EDMS 10:58 Financial registration complete. pm4 11:02 Urinalysis Reviewed. btw 11:02 CBC with Diff Reviewed. btw 11:02 Complete Comphrensive Metabolic Reviewed. btw 11:02 Lactic Acid (Mendoza tube on ice) Reviewed. btw 11:24 [facility] Payment Agreement was scanned into [employer] and attached to record. mm15 07/21 12:39 T-Sheet-- Draft Copy was scanned into [employer] and attached to record. gb Administered Medications: 07/20 10:14 Drug: ketorolac 30 mg [ketorolac 30 mg/mL (1 mL) injection solution (1 mL)] Route: IM; srm Site: right deltoid; 11:00 Follow up: Response: Pain is decreased 4 Addendum: 07/23/2016 21:20 Radiology Callback: Radiology results faxed to primary care physician/provider. dr jessica loomis faxed formal report of pevlic us for fu nmlg. Signatures: Dispatcher [facility] Nicci Andrea MD MD ml Sleeman, Kacey, RN RN Magda Andersen RN RN [facility] Kathia Reid, Reg Reg gb Michael Koch PA PA btw Berto Grewal mm15 Arlette Prakash RN RN 4 Gavin Dawson, Reg Reg pm4 The chart was reviewed and I authenticate all verbal orders and agree with the evaluation and treatment provided.Attachments: 07/20 11:24 [facility] Payment Agreement mm15 07/21 12:39 T-Sheet-- Draft Copy gb MTDD
--- NOTE | 2016-07-23 21:22 | EDDOCDS ---
Physician Documentation [facility] Name: Akua Montano Age: 46 yrs Sex: Female : 1970 Arrival Date: 07/20/2016 Time: 09:15 Bed I2 / M2 Private MD: Unknown Pcp Disposition: 07/20/16 12:15 Discharged to Home/Self Care. Impression: Pelvic and perineal pain - suspect prolapse. - Condition is Stable. - Discharge Instructions: Pelvic Pain, Female, Pelvic Organ Prolapse. - Prescriptions for Diclofenac Sodium 75 mg Oral Tablet, Delayed Release (E.C.) - take 1 tablet by ORAL route 2 times per day; 30 tablet. Tramadol 50 mg Oral Tablet - take 1 tablet by ORAL route 4 times per day As needed MDD: 4 tabs; 20 tablet. - Medication Reconciliation, Local Pharmacy Hours form. - Follow up: Kandace Loomis MD; When: Call to arrange an appointment; Reason: Further diagnostic work-up, Recheck today's complaints, Continuance of care, To establish care. - Problem is an ongoing problem. - Symptoms are unchanged. Historical: - Allergies: No known drug Allergies; - Home Meds: 1. ranitidine Unknown Oral daily 2. calcium 600 units daily - PMHx: GERD; - PSHx: left foot surgery; - Social history: Smoking status: Patient states was never smoker of tobacco. No barriers to communication noted, The patient speaks fluent Belarusian, Smoking status: Patient states former smoker of tobacco. - Family history: Not pertinent. - : The pt / caregiver states he / she is not on anticoagulants. Home medication list is obtained from the patient. - Exposure Risk Screening:: None identified. 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 5 in. (165.10 cm); Pain 8/10; 11:21 BP 131 / 77; Pulse 75; Resp 20; Temp 97.1; Pulse Ox 99% ; Pain 4/10; jam1 12:26 BP 120 / 74; Pulse 72; Resp 18; Temp 98; mk4 09:17 Body Mass Index 26.46 (72.12 kg, 165.10 cm) cmb MDM: 09:54 ketorolac 30 mg IM once ordered. btw 09:54 -US Pelvic Non-Ob Complete Ordered. EDMS 09:54 DUPLEX SCAN LIMITED (DOPPLER)+US Ordered. EDMS 09:55 Urinalysis Ordered. EDMS 09:55 CBC with Diff Ordered. EDMS 09:55 Complete Comphrensive Metabolic Ordered. EDMS 09:55 Lactic Acid (Mendoza tube on ice) Ordered. EDMS 09:55 Urine Culture Ordered. EDMS 10:51 Transvaginal NON- US Ordered. EDMS 10:58 Financial registration complete. pm4 11:02 Urinalysis Reviewed. btw 11:02 CBC with Diff Reviewed. btw 11:02 Complete Comphrensive Metabolic Reviewed. btw 11:02 Lactic Acid (Mendoza tube on ice) Reviewed. btw 11:24 [facility] Payment Agreement was scanned into [email or web address] and attached to record. mm15 07/21 12:39 T-Sheet-- Draft Copy was scanned into [email or web address] and attached to record. gb Administered Medications: 07/20 10:14 Drug: ketorolac 30 mg [ketorolac 30 mg/mL (1 mL) injection solution (1 mL)] Route: IM; srm Site: right deltoid; 11:00 Follow up: Response: Pain is decreased 4 Addendum: 07/23/2016 21:20 Radiology Callback: Radiology results faxed to primary care physician/provider. dr jessica loomis faxed formal report of pevlic us for fu nmlg. Signatures: Dispatcher [facility] Nicci Andrea MD MD ml Sleeman, Kacey, RN RN Magda Andersen RN RN [facility] Kathia Reid, Reg Reg gb Michael Koch PA PA btw Berto Grewal mm15 Arlette Prakash RN RN 4 Gavin Dawson, Reg Reg pm4 The chart was reviewed and I authenticate all verbal orders and agree with the evaluation and treatment provided.Attachments: 07/20 11:24 [facility] Payment Agreement mm15 07/21 12:39 T-Sheet-- Draft Copy gb Chart Complete MTDD
--- NOTE | 2016-07-23 21:22 | EDDOCDS ---
Physician Documentation [facility] Name: Akua Montano Age: 46 yrs Sex: Female : 1970 Arrival Date: 07/20/2016 Time: 09:15 Bed I2 / M2 Private MD: Unknown Pcp Disposition: 07/20/16 12:15 Discharged to Home/Self Care. Impression: Pelvic and perineal pain - suspect prolapse. - Condition is Stable. - Discharge Instructions: Pelvic Pain, Female, Pelvic Organ Prolapse. - Prescriptions for Diclofenac Sodium 75 mg Oral Tablet, Delayed Release (E.C.) - take 1 tablet by ORAL route 2 times per day; 30 tablet. Tramadol 50 mg Oral Tablet - take 1 tablet by ORAL route 4 times per day As needed MDD: 4 tabs; 20 tablet. - Medication Reconciliation, Local Pharmacy Hours form. - Follow up: Kandace Loomis MD; When: Call to arrange an appointment; Reason: Further diagnostic work-up, Recheck today's complaints, Continuance of care, To establish care. - Problem is an ongoing problem. - Symptoms are unchanged. Historical: - Allergies: No known drug Allergies; - Home Meds: 1. ranitidine Unknown Oral daily 2. calcium 600 units daily - PMHx: GERD; - PSHx: left foot surgery; - Social history: Smoking status: Patient states was never smoker of tobacco. No barriers to communication noted, The patient speaks fluent German, Smoking status: Patient states former smoker of tobacco. - Family history: Not pertinent. - : The pt / caregiver states he / she is not on anticoagulants. Home medication list is obtained from the patient. - Exposure Risk Screening:: None identified. 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 5 in. (165.10 cm); Pain 8/10; 11:21 BP 131 / 77; Pulse 75; Resp 20; Temp 97.1; Pulse Ox 99% ; Pain 4/10; jam1 12:26 BP 120 / 74; Pulse 72; Resp 18; Temp 98; mk4 09:17 Body Mass Index 26.46 (72.12 kg, 165.10 cm) cmb MDM: 09:54 ketorolac 30 mg IM once ordered. btw 09:54 -US Pelvic Non-Ob Complete Ordered. EDMS 09:54 DUPLEX SCAN LIMITED (DOPPLER)+US Ordered. EDMS 09:55 Urinalysis Ordered. EDMS 09:55 CBC with Diff Ordered. EDMS 09:55 Complete Comphrensive Metabolic Ordered. EDMS 09:55 Lactic Acid (Mendoza tube on ice) Ordered. EDMS 09:55 Urine Culture Ordered. EDMS 10:51 Transvaginal NON- US Ordered. EDMS 10:58 Financial registration complete. pm4 11:02 Urinalysis Reviewed. btw 11:02 CBC with Diff Reviewed. btw 11:02 Complete Comphrensive Metabolic Reviewed. btw 11:02 Lactic Acid (Mendoza tube on ice) Reviewed. btw 11:24 [facility] Payment Agreement was scanned into [employer] and attached to record. mm15 07/21 12:39 T-Sheet-- Draft Copy was scanned into [employer] and attached to record. gb Administered Medications: 07/20 10:14 Drug: ketorolac 30 mg [ketorolac 30 mg/mL (1 mL) injection solution (1 mL)] Route: IM; srm Site: right deltoid; 11:00 Follow up: Response: Pain is decreased 4 Addendum: 07/23/2016 21:20 Radiology Callback: Radiology results faxed to primary care physician/provider. dr jessica loomis faxed formal report of pevlic us for fu nmlg. Signatures: Dispatcher [facility] Nicci Andrea MD MD ml Sleeman, Kacey, RN RN Magda Andersen RN RN [facility] Kathia Reid, Reg Reg gb Michael Koch PA PA btw Berto Grewal mm15 Arlette Prakash RN RN 4 Gavin Dawson, Reg Reg pm4 The chart was reviewed and I authenticate all verbal orders and agree with the evaluation and treatment provided.Attachments: 07/20 11:24 [facility] Payment Agreement mm15 07/21 12:39 T-Sheet-- Draft Copy gb Chart Complete MTDD
--- NOTE | 2016-07-23 21:22 | EDDOCDS ---
Nurse's Notes [facility] Name: Akua Montano Age: 46 yrs Sex: Female : 1970 Arrival Date: 07/20/2016 Time: 09:15 Bed I2 / M2 Private MD: Unknown Pcp Diagnosis: Pelvic and perineal pain-suspect prolapse Presentation: 07/20 09:29 Presenting complaint: Patient states: she has had a lot pain for 3 weeks - saw Dr. westley Pond at [facility] on Tuesday and he thought her uterus and cervix had dropped - had an internal exam done. Risk factors: the patient reports no vaginal bleeding. Adult Sepsis Screening: The patient does not have new or worsening altered mentation. Patient's respiratory rate is less than 22. Systolic blood pressure is greater than 100. Patient has a qSOFA score of 0- Negative Sepsis Screen. Suicide/Homicide risk assessment- the patient denies having any suicidal and/or homicidal ideations and does not present with any other emotional, behavioral or mental health complaints. 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 Transition of care: patient was not received from another setting of care. 09:29 Acuity: ANEUDY Level 3 kcs 09:29 Method Of Arrival: Walkin/Carried/Asstd kcs Triage Assessment: 09:34 General: Appears uncomfortable, well developed, well nourished, well groomed, Behavior kcs is cooperative, crying, pleasant. Pain: Location: lower abdomen Pain currently is 8 out of 10 on a pain scale. Pt Declines HIV testing. Neurological: Level of Consciousness is awake, alert. Respiratory: Airway is patent Respiratory effort is even, unlabored, Respiratory pattern is regular, symmetrical. Derm: Skin is intact, is healthy with good turgor, Skin is dry, Skin is normal. 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 ranitidine Unknown Oral daily 2. calcium 600 units daily - PMHx: GERD; - PSHx: left foot surgery; - Social history: Smoking status: Patient states was never smoker of tobacco. No barriers to communication noted, The patient speaks fluent Sinhala, Smoking status: Patient states former smoker of tobacco. - Family history: Not pertinent. - : The pt / caregiver states he / she is not on anticoagulants. Home medication list is obtained from the patient. - Exposure Risk Screening:: None identified. Screenin:18 Screening information is obtained from the patient. Fall risk: No risks identified. srm Assistance ADL's: requires no assistance with activities of daily living. Abuse/DV Screen: The patient / caregiver reports he/she is: not in a situation that causes fear, pain or injury. Nutritional screening: No deficits noted. Advance Directives: There is no active DNR order. home support is adequate. Assessment: 10:18 General: Appears in no apparent distress, Behavior is appropriate for age, cooperative. srm Neurological: No deficits noted. Cardiovascular: No deficits noted. Respiratory: No deficits noted. Derm: No deficits noted. 10:18 GI: Abdomen is non- distended. srm 11:58 Reassessment: awaiting re eval by PA. General: Appears in no apparent distress, srm Behavior is appropriate for age, cooperative. Pain: Pain currently is 4 out of 10 on a pain scale. 12:26 General: Appears in no apparent distress, comfortable, Behavior is cooperative. GI: mk4 Bowel sounds present X 4 quads. Abd is soft and non tender. Vital Signs: 09:17 BP 152 / 90; Pulse 99; Resp 18; Temp 98.4(O); Pulse Ox 100% ; Weight 72.12 kg; Height 5 cmb ft. 5 in. (165.10 cm); Pain 8/10; 11:21 BP 131 / 77; Pulse 75; Resp 20; Temp 97.1; Pulse Ox 99% ; Pain 4/10; jam1 12:26 BP 120 / 74; Pulse 72; Resp 18; Temp 98; mk4 09:17 Body Mass Index 26.46 (72.12 kg, 165.10 cm) cmb Vitals: 09:17 Log In Time: July 20, 2016 at 09:14. cmb ED Course: 09:16 Patient visited by Eleonora Lock. cmb 09:16 Unknown Pcp is Private Physician. cmb 09:16 Patient moved to Waiting cmb 09:18 Patient moved to Pre RCE cmb 09:32 Triage Initiated kcs 09:39 Patient moved to Triage 1 kcs 09:41 Michael Koch PA is PHCP. btw 09:41 Teresa Smith MD is Attending Physician. btw 09:41 Patient visited by Michael Koch PA. btw 09:57 Patient moved to I2 / M2 bcj 10:18 The patient / caregiver is instructed regarding the plan of care and ED course. srm Accompanied by Family Member, Patient has correct armband on for positive identification. Bed in low position. Call light in reach. 10:18 Lactic Acid (Mendoza tube on ice) Sent. srm 10:18 Complete Comphrensive Metabolic Sent. srm 10:18 CBC with Diff Sent. srm 10:18 Urine Culture Sent. srm 10:18 Urinalysis Sent. srm 10:19 Patient visited by Magda Montenegro, SUZIE. srm 10:49 Patient moved to Ultrasound br3 11:16 Patient moved to I2 / M2 br3 11:24 [facility] Payment Agreement was scanned into Gracenote and attached to record. mm15 11:33 Patient visited by Arlette Prakash RN. mk4 11:58 Patient visited by Magda Montenegro, SUZIE. srm 12:15 Kandace Yang MD is Referral Physician. btw 12:26 No IV's were initiated during this patient's visit. No procedures done that require mk4 assistance. 16:37 -US Pelvic Non-Ob Complete Returned. EDMS 16:37 DUPLEX SCAN LIMITED (DOPPLER)+US Returned. EDMS 16:37 Transvaginal NON- US Returned. EDMS 07/21 12:39 T-Sheet-- Draft Copy was scanned into Gracenote and attached to record. gb Administered Medications: 07/20 10:14 Drug: ketorolac 30 mg [ketorolac 30 mg/mL (1 mL) injection solution (1 mL)] Route: IM; [facility] Site: right deltoid; 11:00 Follow up: Response: Pain is decreased mk4 Order Results: Lab Order: Urinalysis; SPEC'M 07/20/16 10:14 Test: APPEARANCE, URINE; Value: CLEAR; Range: CLEAR; Status: F Test: COLOR, URINE; Value: STRAW; Range: YELLOW; Status: F Test: PH,URINE; Value: 5.0; Range: 5.0-9.0; Units: UNITS; Status: F Test: SPECIFIC GRAVITY URINE AUTO; Value: 1.006; Range: 1.002-1.035; Status: F Test: PROTEIN, URINE AUTO; Value: NEGATIVE; Range: NEGATIVE; Units: mg/dL; Status: F Test: GLUCOSE, URINE (UA) AUTO; Value: NEGATIVE; Range: NEGATIVE; Units: mg/dL; Status: F Test: KETONE, URINE AUTO; Value: NEGATIVE; Range: NEGATIVE; Units: mg/dL; Status: F Test: UROBILINOGEN, URINE AUTO; Value: 0.2; Range: 0.0-2.0; Units: mg/dL; Status: F Test: BILIRUBIN, URINE AUTO; Value: NEGATIVE; Range: NEGATIVE; Status: F Test: NITRITE, URINE AUTO; Value: NEGATIVE; Range: NEGATIVE; Status: F Test: LEUKOCYTE ESTERASE, URINE AUTO; Value: NEGATIVE; Range: NEGATIVE; Status: F Test: BLOOD, URINE BLOOD; Value: 2+; Range: NEGATIVE; Abnormal: Above high normal; Status: F Test: WBC, URINE AUTO; Value: 0; Range: 0-3; Units: /HPF; Status: F Test: RBC, URINE AUTO; Value: 1; Range: 0-3; Units: /HPF; Status: F Test: BACTERIA, URINE AUTO; Value: 1+; Range: NEGATIVE; Abnormal: Above high normal; Status: F Test: SQUAMOUS EPITHELIAL CELL UR AU; Value: 0; Range: 0-6; Units: /HPF; Status: F Test: HYALINE CAST, URINE AUTO; Value: 0; Range: 0-1; Units: /LPF; Status: F Lab Order: Urine Culture; SPEC'M 07/20/16 10:14 Test: URINE CULTURE; Value: URINE CULTURE RESULT NO GROWTH; Status: F Lab Order: CBC with Diff; SPEC'M 07/20/16 10:14 Test: WHITE BLOOD COUNT; Value: 6.6; Range: 4.0-10.0; Units: K/mm3; Status: F Test: RED BLOOD COUNT; Value: 4.98; Range: 4.00-5.40; Units: M/mm3; Status: F Test: HEMOGLOBIN; Value: 13.6; Range: 12.0-16.0; Units: g/dl; Status: F Test: HEMATOCRIT; Value: 42.3; Range: 36.0-47.0; Units: %; Status: F Test: MEAN CORPUSCULAR VOLUME; Value: 84.9; Range: 80.0-96.0; Units: fl; Status: F Test: MEAN CORPUSCULAR HEMOGLOBIN; Value: 27.2; Range: 27.0-33.0; Units: pg; Status: F Test: MEAN CORPUSCULAR HGB CONC; Value: 32.1; Range: 32.0-36.5; Units: g/dl; Status: F Test: RED CELL DISTRIBUTION WIDTH; Value: 11.9; Range: 11.5-14.5; Units: %; Status: F Test: PLATELET COUNT, AUTOMATED; Value: 375; Range: 150-450; Units: k/mm3; Status: F Test: NEUTROPHILS %; Value: 63.2; Range: 36.0-66.0; Units: %; Status: F Test: LYMPH %; Value: 25.9; Range: 24.0-44.0; Units: %; Status: F Test: MONO %; Value: 5.5; Range: 0.0-5.0; Abnormal: Above high normal; Units: %; Status: F Test: EOS %; Value: 1.6; Range: 0.0-3.0; Units: %; Status: F Test: BASO %; Value: 1.1; Range: 0.0-1.0; Abnormal: Above high normal; Units: %; Status: F Test: LARGE UNSTAINED CELL %; Value: 2.8; Range: 0.0-4.0; Units: %; Status: F Test: NEUTROPHILS #; Value: 4.2; Range: 1.8-7.7; Units: K/mm3; Status: F Test: LYMPH #; Value: 1.7; Range: 1.5-4.5; Units: K/mm3; Status: F Test: MONO #; Value: 0.4; Range: 0.0-0.8; Units: K/mm3; Status: F Test: EOS #; Value: 0.1; Range: 0.0-0.50; Units: K/mm3; Status: F Test: BASO #; Value: 0.1; Range: 0.0-0.2; Units: K/mm3; Status: F Test: LARGE UNSTAINED CELL #; Value: 0.2; Range: 0.0-0.4; Units: K/mm3; Status: F Lab Order: Complete Comphrensive Metabolic; SPEC'M 07/20/16 10:14 Test: GLUCOSE, FASTING; Value: 86; Range: 70-105; Units: MG/DL; Status: F Test: BLOOD UREA NITROGEN; Value: 12; Range: 7-18; Units: MG/DL; Status: F Test: CREATININE FOR GFR; Value: 0.85; Range: 0.55-1.02; Units: MG/DL; Status: F Test: GLOMERULAR FILTRATION RATE; Value: > 60.0; Range: >58; Status: F Test: SODIUM LEVEL; Value: 141; Range: 136-145; Units: MEQ/L; Status: F Test: POTASSIUM SERUM; Value: 3.9; Range: 3.5-5.1; Units: MEQ/L; Status: F Test: CHLORIDE LEVEL; Value: 103; Range: 98-107; Units: MEQ/L; Status: F Test: CARBON DIOXIDE LEVEL; Value: 27; Range: 21-32; Units: MEQ/L; Status: F Test: ANION GAP; Value: 11; Range: 8-16; Units: MEQ/L; Status: F Test: CALCIUM LEVEL; Value: 9.3; Range: 8.5-10.1; Units: MG/DL; Status: F Test: AST/SGOT; Value: 12; Range: 15-37; Abnormal: Below low normal; Units: U/L; Status: F Test: ALT/SGPT; Value: 12; Range: 12-78; Units: U/L; Status: F Test: ALKALINE PHOSPHATASE; Value: 96; Range: 45-117; Units: U/L; Status: F Test: BILIRUBIN,TOTAL; Value: 0.2; Range: 0.2-1.0; Units: MG/DL; Status: F Test: TOTAL PROTEIN; Value: 8.4; Range: 6.4-8.2; Abnormal: Above high normal; Units: GM/DL; Status: F Test: ALBUMIN; Value: 4.2; Range: 3.2-5.2; Units: GM/DL; Status: F Test: ALBUMIN/GLOBULIN RATIO; Value: 1.00; Range: 1.00-1.93; Status: F Test Note: ; Units are mL/min/1.73 m2 Chronic Kidney Disease Staging per NKF: Stage I & II GFR >=60 Normal to Mildly Decreased Stage III GFR 30-59 Moderately Decreased Stage IV GFR 15-29 Severely Decreased Stage V GFR <15 Very Little GFR Left ESRD GFR <15 on [employer] Lab Order: Lactic Acid (Mendoza tube on ice); ASHLEE'Nathaly 07/20/16 10:14 Test: LACTIC ACID LEVEL, LACTATE; Value: 1.2; Range: 0.4-2.0; Units: MMOL/L; Status: F Radiology Order: -US Pelvic Non-Ob Complete Test: -US Pelvic Non-Ob Complete REASON FOR EXAMINATION: ? prolapse;Adnexal Pain r/o Torsion; PELVIC ULTRASOUND:; ; Real-time sonographic evaluation of the pelvis was performed utilizing; transabdominal and endovaginal technique.; ; The bladder measures 3.8 x 5.6 x 2.4 m. The uterus measures 8.2 x 4.5 x 5.8 cm.; Endometrium is heterogenous in echotexture with ill-defined margins and tiny; cystic areas. Findings may represent adenomyosis. Thickness is 10 mm. The uterus; is retroverted. Ovaries are normal in size and echotexture, right ovary measuring; 2.4 x 1.1 x 1.4 cm and the left ovary measuring 2.4 x 2.0 x 1.9 cm. There is no; adnexal mass. There is no free fluid. There is no torsion with blood flow seen in; each ovary with duplex Doppler evaluation, RI of the right ovary 0.63 and left; ovary 0.56.; ; IMPRESSION:; ; Endometrium ill-defined with tiny cystic areas, possibly indicating adenomyosis.; ; ; No adnexal mass or free fluid. No evidence of ovarian torsion.; ; ; Signed by; Adriel Mendoza MD 07/21/2016 05:08 P; Radiology Order: DUPLEX SCAN LIMITED (DOPPLER)+US Test: DUPLEX SCAN LIMITED (DOPPLER)+US REASON FOR EXAMINATION: ? prolapse;Adnexal Pain r/o Torsion; PELVIC ULTRASOUND:; ; Real-time sonographic evaluation of the pelvis was performed utilizing; transabdominal and endovaginal technique.; ; The bladder measures 3.8 x 5.6 x 2.4 m. The uterus measures 8.2 x 4.5 x 5.8 cm.; Endometrium is heterogenous in echotexture with ill-defined margins and tiny; cystic areas. Findings may represent adenomyosis. Thickness is 10 mm. The uterus; is retroverted. Ovaries are normal in size and echotexture, right ovary measuring; 2.4 x 1.1 x 1.4 cm and the left ovary measuring 2.4 x 2.0 x 1.9 cm. There is no; adnexal mass. There is no free fluid. There is no torsion with blood flow seen in; each ovary with duplex Doppler evaluation, RI of the right ovary 0.63 and left; ovary 0.56.; ; IMPRESSION:; ; Endometrium ill-defined with tiny cystic areas, possibly indicating adenomyosis.; ; ; No adnexal mass or free fluid. No evidence of ovarian torsion.; ; ; Signed by; Adriel Mendoza MD 07/21/2016 05:08 P; Radiology Order: Transvaginal NON- US Test: Transvaginal NON- US REASON FOR EXAMINATION: EVAL UTERUS AND OVARIES; PELVIC ULTRASOUND:; ; Real-time sonographic evaluation of the pelvis was performed utilizing; transabdominal and endovaginal technique.; ; The bladder measures 3.8 x 5.6 x 2.4 m. The uterus measures 8.2 x 4.5 x 5.8 cm.; Endometrium is heterogenous in echotexture with ill-defined margins and tiny; cystic areas. Findings may represent adenomyosis. Thickness is 10 mm. The uterus; is retroverted. Ovaries are normal in size and echotexture, right ovary measuring; 2.4 x 1.1 x 1.4 cm and the left ovary measuring 2.4 x 2.0 x 1.9 cm. There is no; adnexal mass. There is no free fluid. There is no torsion with blood flow seen in; each ovary with duplex Doppler evaluation, RI of the right ovary 0.63 and left; ovary 0.56.; ; IMPRESSION:; ; Endometrium ill-defined with tiny cystic areas, possibly indicating adenomyosis.; ; ; No adnexal mass or free fluid. No evidence of ovarian torsion.; ; ; Signed by; Adriel Mendoza MD 07/21/2016 05:08 P; Outcome: 12:15 Discharge ordered by Provider. btw 12:26 Discharge Assessment: Patient awake, alert and oriented x 3. No cognitive and/or mk4 functional deficits noted. Patient verbalized understanding of disposition instructions. Patient awake and alert. Discharge Assessment: patient administered narcotics - no. The following High Risk Discharge criteria are identified: None. Discharged to home ambulatory. Condition: good Condition: stable. No special radiology studies were completed. Property sent home with patient. 12:28 Patient left the ED. mk4 Signatures: Dispatcher [employer] EDKezia Schumacher, RN RN Velasquez Rose RN RN bcj Michelson, Staci RN RN Moni Price, LI DUST MIXER jam1 Kathia Reid, Reg Reg gb Randee Huang br3 Michael Koch PA PA btw Boshart, Chelsea cmb McGrath, Marlynn mm15 Arlette Prakash, RN RN mk4 Chart Complete MTDRamon
== END 2016-07-20 12:28 | disposition home or self-care (01) ==
LOC: M ED 09:15
DX: R10.2 Pelvic and perineal pain (principal); K21.9 Gastro-esophageal reflux disease without esophagitis; Z79.899 Other long term (current) drug therapy; Z87.891 Personal history of nicotine dependence
CPT/HCPCS: 36415; 76830; 76856; 80053; 81001; 83605; 85025; 87086; 93976; 96372; 99283; J1885

== ENCOUNTER 2017-09-23 16:37 | Emergency (ER) | payer OTHER, MEDICAID ==
[2017-09-23] MEDS: NS 1,000 ML IV (18:40)
[2017-09-23] MEDS: NS 500 ML IV (18:45)
[2017-09-23 19:35] LABS: BASO # 0.1 10^3/uL (0.0-0.2); BASO % 0.7 % (0.0-1.0); EOS # 0.3 10^3/uL (0.0-0.50); EOS % 3.2 % (0.0-3.0); HEMATOCRIT 37.7 % (36.0-47.0); HEMOGLOBIN 12.4 g/dl (12.0-16.0); IMMATURE GRANULOCYTE % 0.2 % (0-3.0); LYMPH # 2.4 10^3/uL (1.5-4.5); MEAN CORPUSCULAR HEMOGLOBIN 28.2 pg (27.0-33.0); MEAN CORPUSCULAR HGB CONC 32.9 g/dl (32.0-36.5); MEAN CORPUSCULAR VOLUME 85.9 fl (80.0-96.0); MONO # 0.6 10^3/uL (0.0-0.8); MONO % 7.8 % (0.0-5.0); NEUTROPHILS # 4.7 10^3/uL (1.8-7.7); NEUTROPHILS % 58.1 % (36.0-66.0); PLATELET COUNT, AUTOMATED 356 10^3/uL (150-450); RED BLOOD COUNT 4.39 10^6/uL (4.00-5.40)
[2017-09-23 19:45] LABS: INR 0.95; PROTHROMBIN TIME 12.7 SECONDS (12.4-14.5)
[2017-09-23 19:46] LABS: PARTIAL THROMBOPLASTIN TIME 31.9 SECONDS (26.8-37.9)
[2017-09-23 19:50] LABS: CONTROL LINE HCG INT CTR LINE PRESENT; HCG, SERUM QUALITATIVE NEGATIVE (NEGATIVE)
[2017-09-23 19:58] LABS: LACTIC ACID SEPSIS PROTOCOL 1.5 MMOL/L (0.4-2.0)
[2017-09-23 19:59] LABS: ALBUMIN 3.9 GM/DL (3.2-5.2); ALBUMIN/GLOBULIN RATIO 1.11 (1.00-1.93); ALKALINE PHOSPHATASE 69 U/L (45-117); ALT/SGPT 17 U/L (12-78); AMYLASE 28 U/L (25-115); ANION GAP 8 MEQ/L (8-16); AST/SGOT 13 U/L (7-37); BILIRUBIN,DIRECT < 0.1 MG/DL (0.0-0.2); BILIRUBIN,TOTAL 0.2 MG/DL (0.2-1.0); BLOOD UREA NITROGEN 9 MG/DL (7-18); CALCIUM LEVEL 8.4 MG/DL (8.5-10.1); CARBON DIOXIDE LEVEL 27 MEQ/L (21-32); CHLORIDE LEVEL 106 MEQ/L (98-107); CPK CREATINE PHOSPHOKINASE 40 U/L (26-192); CREATININE FOR GFR 0.68 MG/DL (0.55-1.30); GLOMERULAR FILTRATION RATE > 60.0 (>58); GLUCOSE, FASTING 79 MG/DL (70-100); LIPASE 78 U/L (73-393); POTASSIUM SERUM 3.2 MEQ/L (3.5-5.1); SODIUM LEVEL 141 MEQ/L (136-145); TOTAL PROTEIN 7.4 GM/DL (6.4-8.2); TROPONIN I < 0.02 NG/ML (< 0.10)
[2017-09-23 20:57] LABS: KETONE, URINE AUTO RFX NEGATIVE (NEGATIVE); LEUKOCYTE ESTERASE UR AUTO RFX NEGATIVE (NEGATIVE); MUCUS, URINE RFX LARGE (NEGATIVE); NITRITE, URINE AUTO RFX NEGATIVE (NEGATIVE); RBC, URINE AUTO RFX 10 /HPF (0-3); SPECIFIC GRAVITY UR AUTO RFX 1.017 (1.002-1.035); SQUAM EPITHELIAL CELL UR AURFX 5 /HPF (0-6); WBC, URINE AUTO RFX 2 /HPF (0-3)
[2017-09-23] MEDS ORDERED: ISOVUE-370 76% 100ML VIAL (Q9967) As Ordered (21:09)
[2017-09-23] MEDS: GI COCKTAIL 50ML BTL(HYOSCYAMINE/MAALOX/LIDOCAINE VISCOUS)(1:3:1) PO (21:22)
[2017-09-23] MEDS: OMEPRAZOLE 20 MG CAP PO (21:23)
== END 2017-09-23 22:18 | disposition home or self-care (01) ==
LOC: M ED 16:37
DX: K29.70 Gastritis, unspecified, without bleeding (principal); K21.9 Gastro-esophageal reflux disease without esophagitis; Z87.891 Personal history of nicotine dependence
CPT/HCPCS: Q9967

== ENCOUNTER 2017-10-28 09:28 | Day surgery (SDC) | payer OTHER, MEDICAID ==
[2017-10-28] MEDS: NS 1,000 ML IV (09:46)
[2017-10-28] MEDS ORDERED: PROPOFOL 200 MG/20 ML VIAL As Ordered ×3 (11:12)
[2017-10-28] MEDS ORDERED: LIDOCAINE 2% INJ 100 MG/5 ML SDV (FOR ANES.) As Ordered (11:12)
== END 2017-10-28 12:08 | disposition home or self-care (01) ==
LOC: M OPP 09:28
DX: K52.9 Noninfective gastroenteritis and colitis, unspecified (principal); K64.8 Other hemorrhoids; K63.5 Polyp of colon; R10.13 Epigastric pain; K29.70 Gastritis, unspecified, without bleeding; K22.8 Other specified diseases of esophagus; K44.9 Diaphragmatic hernia without obstruction or gangrene
CPT/HCPCS: 45380

== ENCOUNTER → 2018-03-29 | Outpatient (REF) | payer OTHER | LOC: M LAB REF 09:27 | DX: J02.9 Acute pharyngitis, unspecified (principal); J20.9 Acute bronchitis, unspecified ==

== ENCOUNTER → 2018-12-31 | Outpatient (REF) | payer OTHER ==
[~2018-12-31] MED LIST changes: +AZIT-12 PO; -AZIT250T3 PO; +CALC500T49 PO; -CEFT500T PO; +CEFT500T3 PO; +NEXI20CA PO; +PRIL20CA9 PO; +SUCR1SS PO; +ZANTTAB PO
== END ==
LOC: M LAB REF 10:40
PROVIDERS: ATTEND Physician Assistant
DX: J02.9 Acute pharyngitis, unspecified (principal)

== ENCOUNTER → 2020-10-10 | Outpatient (CLI) | payer OTHER ==
[~2020-10-10] MED LIST changes: +ZANT150T40 PO; -ZANTTAB PO
== END ==
LOC: M WUC 14:23
PROVIDERS: ATTEND Hospitalist
DX: R53.82 Chronic fatigue, unspecified (principal)

== ENCOUNTER → 2020-10-10 | Outpatient (REF) | payer OTHER | LOC: M SFHCPLAZ 14:04 | PROVIDERS: ATTEND Family Medicine | DX: R53.82 Chronic fatigue, unspecified (principal) ==

== ENCOUNTER → 2020-11-21 | Outpatient (CLI) | payer MEDICAID, OTHER ==
--- NOTE | 2020-11-21 13:13 | REP ---
INDICATION: LEFT BREAST CIARRA DENSITY. COMPARISON: Screening examination 11/11/2020 TECHNIQUE: Diagnostic digital magnified spot compression views of the left breast were obtained in the retroareolar region near 9 o'clock. DBT spot views were also obtained. Diagnostic ultrasonography of the left breast over the region of interest was also obtained FINDINGS: There are 3 lesions seen ultrasonographically. All 3 on the retroareolar 9 o'clock position. Lesion 1 is anechoic measuring 1 cm in its greatest dimension and exhibiting posterior wall enhancement and increased through transmission. This is a simple cyst. Lesion 2 is hypoechoic measuring 6 mm Lesion 3 is hypoechoic measuring 8 mm. Diagnostic mammography shows a persistent nodule retroareolar region at 9 o'clock M best on the DBT spot views. IMPRESSION: 1. There is a simple cyst in the left breast as described above. 2. There are 2 solid nodules in the left breast in the same region as the simple cyst. Biopsy of these 2 solid nodules is recommended. I cannot confirm a mammographic correlate. Certainly, due to the patient's breast density breast MRI could be considered at this time. 3. ACR category 4 4. Shear wave elastography and anatomical intelligent was not ultrasonographically utilized. The reason for this is unknown to me. <Electronically signed by Tim Polanco > 11/21/20 1312
== END ==
LOC: M WHC 11:20
PROVIDERS: ATTEND Hospitalist
DX: R92.2 Inconclusive mammogram (principal)
CPT/HCPCS: 76642; 77065; G0279

== ENCOUNTER → 2020-12-23 | Outpatient (CLI) | payer OTHER ==
[~2020-12-23] MED LIST changes: +NOXI1TAB PO
[2020-12-23 12:09] VITALS: BP 122/82
--- NOTE | 2020-12-23 12:33 | REP ---
INDICATION: R92.8,2 SOLID NODULES LT BREAST,POST US GUIDED BIOPSY. COMPARISON: 11/11/2020, 11/21/2020. TECHNIQUE: ML and CC views left breast performed. FINDINGS: At the site of the nodule in the medial left breast there is an adjacent metallic biopsy clip along the margin of the nodule. Another biopsy clip is seen more posteriorly and superiorly at the site of the 2nd biopsy. IMPRESSION: Two biopsy clips placed at the site of 2 ultrasound-guided biopsies of 2 hypoechoic nodules in the left breast. RECOMMENDATION: Clinical follow-up. <Electronically signed by Adriel Mendoza > 12/23/20 [id number]
--- NOTE | 2020-12-23 20:15 | REP ---
INDICATION: R92.8, 2 SOLID NODULES LT BREAST,US GUIDED BIOPSY. COMPARISON: None. TECHNIQUE: The procedure was performed under the general supervision of Dr. Mendoza. The patient has a history of 3 lesions in the 9 o'clock position of the left breast seen on a previous ultrasound dated 11/21/2020. Lesion 1 is an anechoic nodule measuring 1 cm in its greatest dimension. Lesion 2 is a hypoechoic nodule measuring 6 mm. Lesion 3 is a hypoechoic nodule measuring 8 mm. The risks and benefits of the procedure were explained to the patient and informed consent was obtained. The more inferior lesion in the 9 o'clock position was addressed 1st. The right breast nodule was localized using ultrasound guidance. The skin was prepped and draped in a sterile fashion. 1% Xylocaine was used as a local anesthetic. Using ultrasound guidance a 14 gauge coaxial needle biopsy system was inserted and6 core biopsy samples were obtained. A marker clip (HydroMARK shape 3) was placed at the biopsy site The anechoic nodule was then addressed. Using ultrasound guidance a 22 gauge spinal needle was inserted and advanced into the cyst. A few drops of red colored fluid was withdrawn and sent to the lab for analysis. The cyst appeared to completely collapse. The more superior nodule was then addressed. The right breast nodule was localized using ultrasound guidance. The skin was prepped and draped in a sterile fashion. 1% Xylocaine was used as a local anesthetic. Using ultrasound guidance a 14 gauge coaxial needle biopsy system was inserted and6 core biopsy samples were obtained. A marker clip (HydroMARK shape 4) was placed at the biopsy site The patient tolerated the procedure well and there were no immediate complications. After the appropriate amount of monitored convalescence, the patient was discharged from the department. FINDINGS: None IMPRESSION: Ultrasound-guided left breast biopsy of 2 nodules as well as the aspiration of the cyst. <Electronically signed by Shaka Arana > 12/23/20 1606 <Electronically signed by Adriel Mendoza > 12/23/202011
== END ==
LOC: M WHCPRO 06:45
PROVIDERS: ATTEND Hospitalist
DX: N60.12 Diffuse cystic mastopathy of left breast (principal)

== ENCOUNTER → 2021-01-12 | Outpatient (REF) | payer OTHER ==
[2021-01-12 22:30] LABS: APPEARANCE, URINE CLOUDY (CLEAR); BACTERIA, URINE AUTO 2+ (NEGATIVE); BILIRUBIN, URINE AUTO NEGATIVE (NEGATIVE); BLOOD, URINE BLOOD 3+ (NEGATIVE); COLOR, URINE YELLOW (YELLOW); GLUCOSE, URINE (UA) AUTO NEGATIVE (NEGATIVE); KETONE, URINE AUTO NEGATIVE (NEGATIVE); LEUKOCYTE ESTERASE, URINE AUTO 3+ (NEGATIVE); MUCUS, URINE SMALL (NEGATIVE); NITRITE, URINE AUTO NEGATIVE (NEGATIVE); PROTEIN, URINE AUTO 2+ mg/dL (NEGATIVE); RBC, URINE AUTO 117 /HPF (0-3); SPECIFIC GRAVITY URINE AUTO 1.009 (1.002-1.035); SQUAMOUS EPITHELIAL CELL UR AU 3 /HPF (0-6); UROBILINOGEN, URINE AUTO 0.2 mg/dL (0.0-2.0); WBC, URINE AUTO 151 /HPF (0-3)
== END ==
LOC: M LAB REF 22:05
PROVIDERS: ATTEND Physician Assistant Medical
DX: R30.0 Dysuria (principal)

== ENCOUNTER 2021-11-03 08:04 | Emergency (ER) | payer OTHER ==
[~2021-11-03] VITALS: Ht 165.1 cm; Wt 78.2 kg
[2021-11-03] MEDS ORDERED: IBUP200T46 PO (08:17)
[2021-11-03] MEDS ORDERED: ACETAMINOPHEN 325 MG TAB PO ONE (09:05)
[2021-11-03 09:30] LABS: APPEARANCE, URINE CLEAR (CLEAR); BACTERIA, URINE AUTO 1+ (NEGATIVE); BILIRUBIN, URINE AUTO NEGATIVE (NEGATIVE); BLOOD, URINE BLOOD 1+ (NEGATIVE); COLOR, URINE STRAW (YELLOW); GLUCOSE, URINE (UA) AUTO NEGATIVE (NEGATIVE); KETONE, URINE AUTO NEGATIVE (NEGATIVE); LEUKOCYTE ESTERASE, URINE AUTO NEGATIVE (NEGATIVE); NITRITE, URINE AUTO NEGATIVE (NEGATIVE); PROTEIN, URINE AUTO NEGATIVE (NEGATIVE); RBC, URINE AUTO 1 /HPF (0-3); SPECIFIC GRAVITY URINE AUTO 1.003 (1.002-1.035); SQUAMOUS EPITHELIAL CELL UR AU 0 /HPF (0-6); UROBILINOGEN, URINE AUTO 0.2 mg/dL (0.0-2.0); WBC, URINE AUTO 0 /HPF (0-3)
[2021-11-03] MEDS ORDERED: NAPR-837 PO (09:51)
[2021-11-03] MEDS ORDERED: METH-1164 PO (09:51)
[2021-11-03 09:55] VITALS: BP 112/65
== END 2021-11-03 10:01 | disposition home or self-care (01) ==
LOC: M ED 08:04
DX: M54.50 Low back pain, unspecified (principal); K21.9 Gastro-esophageal reflux disease without esophagitis; Z79.899 Other long term (current) drug therapy

== ENCOUNTER 2021-12-09 09:24 | Emergency (ER) | payer OTHER ==
[~2021-12-09] VITALS: Ht 165.1 cm; Wt 76.0 kg
[~2021-12-09 09:24] MED LIST changes: +IBUP200T46 PO; +METH-1164 PO; +NAPR-837 PO
[2021-12-09 11:51] LABS: BASO # 0.1 10^3/uL (0.0-0.2); BASO % 1.1 % (0.0-1.0); EOS # 0.1 10^3/uL (0.0-0.5); EOS % 1.4 % (0.0-3.0); HEMATOCRIT 41.9 % (36.0-47.0); HEMOGLOBIN 13.5 g/dl (12.0-15.5); LYMPH # 2.1 10^3/uL (1.5-5.0); LYMPH % 22.3 % (24.0-44.0); MEAN CORPUSCULAR HEMOGLOBIN 28.3 pg (27.0-33.0); MEAN CORPUSCULAR HGB CONC 32.2 g/dl (32.0-36.5); MEAN CORPUSCULAR VOLUME 87.8 fl (80.0-96.0); MONO # 0.7 10^3/uL (0.0-0.8); NEUTROPHILS # 6.5 10^3/uL (1.5-8.5); NEUTROPHILS % 67.9 % (36.0-66.0); PLATELET COUNT, AUTOMATED 410 10^3/uL (150-450); RED BLOOD COUNT 4.77 10^6/uL (4.00-5.40); WHITE BLOOD COUNT 9.6 10^3/uL (4.0-10.0)
[2021-12-09] MEDS ORDERED: KETOROLAC 30 MG/ML 1ML VIAL IV ONE (12:10)
[2021-12-09 12:12] LABS: ALBUMIN 3.9 GM/DL (3.2-5.2); ALT/SGPT 19 U/L (12-78); BILIRUBIN,DIRECT < 0.1 MG/DL (0.0-0.2); BILIRUBIN,TOTAL 0.3 MG/DL (0.2-1.0); BLOOD UREA NITROGEN 10 MG/DL (7-18); CALCIUM LEVEL 9.6 MG/DL (8.5-10.1); CARBON DIOXIDE LEVEL 28 MEQ/L (21-32); CHLORIDE LEVEL 105 MEQ/L (98-107); CREATININE FOR GFR 0.78 MG/DL (0.55-1.30); GLOMERULAR FILTRATION RATE > 60.0 (>51); GLUCOSE, FASTING 88 MG/DL (70-100); LIPASE 78 U/L (73-393); SODIUM LEVEL 138 MEQ/L (136-145); TOTAL PROTEIN 8.1 GM/DL (6.4-8.2)
[2021-12-09] MEDS ORDERED: ISOVUE-370 76% 100ML VIAL As Ordered ONE (13:46)
[2021-12-09 15:15] LABS: GC DNA AMPLIFICATION NEGATIVE (NEGATIVE)
[2021-12-09 15:38] VITALS: BP 136/86
== END 2021-12-09 15:41 | disposition home or self-care (01) ==
LOC: M ED 09:34
DX: R10.2 Pelvic and perineal pain (principal); N83.201 Unspecified ovarian cyst, right side
CPT/HCPCS: 74177; 76856; 80048; 80076; 81001; 83690; 85025; 87210; 87661; 87810; 87850; 93976; 96374; 99284; J1885; Q9967

== ENCOUNTER → 2021-12-16 | Outpatient (CLI) | payer OTHER ==
[2021-12-16 14:06] LABS: APPEARANCE, URINE CLEAR (CLEAR); BACTERIA, URINE AUTO 1+ (NEGATIVE); BILIRUBIN, URINE AUTO NEGATIVE (NEGATIVE); BLOOD, URINE BLOOD 1+ (NEGATIVE); COLOR, URINE COLORLESS (YELLOW); GLUCOSE, URINE (UA) AUTO NEGATIVE (NEGATIVE); KETONE, URINE AUTO NEGATIVE (NEGATIVE); LEUKOCYTE ESTERASE, URINE AUTO NEGATIVE (NEGATIVE); NITRITE, URINE AUTO NEGATIVE (NEGATIVE); PROTEIN, URINE AUTO NEGATIVE (NEGATIVE); RBC, URINE AUTO 1 /HPF (0-3); SPECIFIC GRAVITY URINE AUTO 1.002 (1.002-1.035); SQUAMOUS EPITHELIAL CELL UR AU 0 /HPF (0-6); UROBILINOGEN, URINE AUTO 0.2 mg/dL (0.0-2.0); WBC, URINE AUTO 0 /HPF (0-3)
== END ==
LOC: M PLALAB 09:29
PROVIDERS: ATTEND Student in an Organized Health Care Education/Training Program
DX: R31.29 Other microscopic hematuria (principal)

== ENCOUNTER → 2021-12-17 | Outpatient (REF) | payer OTHER ==
[2021-12-17 17:16] LABS: APPEARANCE, URINE CLEAR (CLEAR); BACTERIA, URINE AUTO NEGATIVE (NEGATIVE); BILIRUBIN, URINE AUTO NEGATIVE (NEGATIVE); BLOOD, URINE BLOOD 2+ (NEGATIVE); COLOR, URINE STRAW (YELLOW); GLUCOSE, URINE (UA) AUTO NEGATIVE (NEGATIVE); KETONE, URINE AUTO NEGATIVE (NEGATIVE); LEUKOCYTE ESTERASE, URINE AUTO NEGATIVE (NEGATIVE); NITRITE, URINE AUTO NEGATIVE (NEGATIVE); PROTEIN, URINE AUTO NEGATIVE (NEGATIVE); RBC, URINE AUTO 1 /HPF (0-3); SPECIFIC GRAVITY URINE AUTO 1.004 (1.002-1.035); SQUAMOUS EPITHELIAL CELL UR AU 1 /HPF (0-6); UROBILINOGEN, URINE AUTO 0.2 mg/dL (0.0-2.0); WBC, URINE AUTO 1 /HPF (0-3)
== END ==
LOC: M SMT 16:56
PROVIDERS: ATTEND Physician Assistant
DX: R31.29 Other microscopic hematuria (principal)

== ENCOUNTER → 2022-01-06 | Outpatient (CLI) | payer OTHER ==
[2022-01-06 10:55] LABS: BASO # 0.1 10^3/uL (0.0-0.2); BASO % 1.3 % (0.0-1.0); EOS # 0.2 10^3/uL (0.0-0.5); EOS % 3.1 % (0.0-3.0); HEMOGLOBIN 12.9 g/dl (12.0-15.5); LYMPH # 1.6 10^3/uL (1.5-5.0); MEAN CORPUSCULAR HEMOGLOBIN 28.8 pg (27.0-33.0); MEAN CORPUSCULAR HGB CONC 32.3 g/dl (32.0-36.5); MEAN CORPUSCULAR VOLUME 89.3 fl (80.0-96.0); MONO # 0.7 10^3/uL (0.0-0.8); MONO % 8.7 % (2.0-8.0); NEUTROPHILS # 4.8 10^3/uL (1.5-8.5); NEUTROPHILS % 64.6 % (36.0-66.0); PLATELET COUNT, AUTOMATED 341 10^3/uL (150-450); RED BLOOD COUNT 4.48 10^6/uL (4.00-5.40); WHITE BLOOD COUNT 7.4 10^3/uL (4.0-10.0)
[2022-01-06 11:31] LABS: BLOOD UREA NITROGEN 11 MG/DL (7-18); CARBON DIOXIDE LEVEL 27 MEQ/L (21-32); CHLORIDE LEVEL 105 MEQ/L (98-107); CHOLESTEROL LEVEL 229 MG/DL (<200); CHOLESTEROL RISK RATIO 3.634 (<5); CREATININE FOR GFR 0.65 MG/DL (0.55-1.30); GLOMERULAR FILTRATION RATE > 60.0 (>51); GLUCOSE, FASTING 78 MG/DL (70-100); HDL CHOLESTEROL 63 MG/DL (>40); LDL CHOLESTEROL 132 MG/DL (<100); NON-HDL-C 166 MG/DL; POTASSIUM SERUM 4.4 MEQ/L (3.5-5.1); SODIUM LEVEL 140 MEQ/L (136-145); TRIGLYCERIDES LEVEL 171 MG/DL (<150)
[2022-01-06 13:11] LABS: HEMOGLOBIN A1c 5.2 %
== END ==
LOC: M PLALAB 08:27
PROVIDERS: ATTEND Student in an Organized Health Care Education/Training Program
DX: Z00.00 Encounter for general adult medical examination without abnormal findings (principal)

== ENCOUNTER → 2022-06-03 | Outpatient (CLI) | payer OTHER ==
[2022-06-03 11:12] LABS: APPEARANCE, URINE MANUAL CLEAR (CLEAR); COLOR, URINE MANUAL YELLOW (YELLOW); SPECIFIC GRAVITY,URINE MANUAL 1.002 (1.002-1.035)
[2022-06-03 11:14] LABS: MEAN CORPUSCULAR HEMOGLOBIN 28.2 pg (27.0-33.0); MEAN CORPUSCULAR HGB CONC 31.7 g/dl (32.0-36.5); MEAN CORPUSCULAR VOLUME 88.9 fl (80.0-96.0); PLATELET COUNT, AUTOMATED 382 10^3/uL (150-450); RED BLOOD COUNT 4.61 10^6/uL (4.00-5.40); WHITE BLOOD COUNT 7.3 10^3/uL (4.0-10.0)
[2022-06-03 11:29] LABS: BILIRUBIN, URINE MANUAL NEGATIVE (NEGATIVE); GLUCOSE, URINE (UA) MANUAL NEGATIVE (NEGATIVE); KETONE, URINE MANUAL NEGATIVE (NEGATIVE); LEUKOCYTE ESTERASE, URINE MAN NEGATIVE (NEGATIVE); NITRITE, URINE MANUAL NEGATIVE (NEGATIVE); PROTEIN, URINE MANUAL NEGATIVE (NEGATIVE); UROBILINOGEN, URINE MANUAL NORMAL (NORMAL)
[2022-06-03 11:30] LABS: BLOOD URINE MANUAL TRACE (NEGATIVE)
[2022-06-03 12:14] LABS: BLOOD UREA NITROGEN 10 MG/DL (9-23); CALCIUM LEVEL 9.8 MG/DL (8.5-10.1); CARBON DIOXIDE LEVEL 27 MMOL/L (20-31); CHLORIDE LEVEL 104 MMOL/L (98-107); CREATININE FOR GFR 0.72 MG/DL (0.55-1.30); GLOMERULAR FILTRATION RATE > 60.0 (>51); GLUCOSE, FASTING 82 MG/DL (60-100); POTASSIUM SERUM 4.2 MMOL/L (3.5-5.1); SODIUM LEVEL 141 MMOL/L (136-145)
[2022-06-03 21:47] LABS: RBC, URINE 0-1 /hpf (0-3); SQUAMOUS EPITHELIAL CELL URINE SMALL AMOUNT /hpf (SMALL AMT); WBC, URINE 0-1 /hpf (0-3)
[2022-06-03 21:48] LABS: BACTERIA, URINE SMALL AMOUNT; HYALINE CAST, URINE NONE SEEN /lpf (0-1)
== END ==
LOC: M PLALAB 08:32
PROVIDERS: ATTEND Student in an Organized Health Care Education/Training Program
DX: Z01.818 Encounter for other preprocedural examination (principal)

== ENCOUNTER → 2023-01-28 | Outpatient (CLI) | payer OTHER ==
[2023-01-28 13:51] LABS: BASO # 0.2 10^3/uL (0.0-0.2); BASO % 1.9 % (0.0-1.0); EOS # 0.3 10^3/uL (0.0-0.5); EOS % 3.5 % (0.0-3.0); HEMATOCRIT 39.7 % (36.0-47.0); HEMOGLOBIN 12.6 g/dl (12.0-15.5); LYMPH # 2.8 10^3/uL (1.5-5.0); LYMPH % 34.2 % (24.0-44.0); MEAN CORPUSCULAR HEMOGLOBIN 28.8 pg (27.0-33.0); MEAN CORPUSCULAR HGB CONC 31.7 g/dl (32.0-36.5); MEAN CORPUSCULAR VOLUME 90.6 fl (80.0-96.0); MONO # 0.5 10^3/uL (0.0-0.8); MONO % 6.7 % (2.0-8.0); NEUTROPHILS # 4.3 10^3/uL (1.5-8.5); NEUTROPHILS % 53.5 % (36.0-66.0); PLATELET COUNT, AUTOMATED 341 10^3/uL (150-450); RED BLOOD COUNT 4.38 10^6/uL (4.00-5.40); WHITE BLOOD COUNT 8.1 10^3/uL (4.0-10.0)
[2023-01-28 14:29] LABS: CHOLESTEROL RISK RATIO 2.54 (<5); HDL CHOLESTEROL 81.8 MG/DL (>40); LDL CHOLESTEROL 109.6 MG/DL (<100); NON-HDL-C 126.2 MG/DL
[2023-01-28 14:35] LABS: THYROID STIMULATING HORMONE 1.208 uIU/ML (0.55-4.78)
== END ==
LOC: M PLALAB 11:28
PROVIDERS: ATTEND Student in an Organized Health Care Education/Training Program
DX: Z13.220 Encounter for screening for lipoid disorders (principal)

== ENCOUNTER → 2023-09-05 | Outpatient (CLI) | payer OTHER ==
[2023-09-05 15:58] LABS: APPEARANCE, URINE CLEAR (CLEAR); BACTERIA, URINE AUTO NEGATIVE (NEGATIVE); BILIRUBIN, URINE AUTO NEGATIVE (NEGATIVE); BLOOD, URINE BLOOD NEGATIVE (NEGATIVE); COLOR, URINE COLORLESS (YELLOW); GLUCOSE, URINE (UA) AUTO NEGATIVE (NEGATIVE); KETONE, URINE AUTO NEGATIVE (NEGATIVE); LEUKOCYTE ESTERASE, URINE AUTO NEGATIVE (NEGATIVE); NITRITE, URINE AUTO NEGATIVE (NEGATIVE); PROTEIN, URINE AUTO NEGATIVE (NEGATIVE); RBC, URINE AUTO 1 /HPF (0-3); SPECIFIC GRAVITY URINE AUTO 1.004 (1.002-1.035); SQUAMOUS EPITHELIAL CELL UR AU 0 /HPF (0-6); UROBILINOGEN, URINE AUTO 0.2 mg/dL (0.0-2.0); WBC, URINE AUTO 0 /HPF (0-3)
== END ==
LOC: M PLALAB 12:15
PROVIDERS: ATTEND Physician Assistant
DX: R31.29 Other microscopic hematuria (principal)

== ENCOUNTER → 2024-01-17 | Outpatient (CLI) | payer OTHER ==
[2024-01-17 18:04] LABS: C REACTIVE PROTEIN QUANTITATIV 0.8 MG/DL (<1.0)
[2024-01-17 18:05] LABS: CHOLESTEROL RISK RATIO 2.92 (<5); LDL CHOLESTEROL 125.2 MG/DL (<100)
== END ==
LOC: M PLALAB 16:07
PROVIDERS: ATTEND Student in an Organized Health Care Education/Training Program
DX: E78.5 Hyperlipidemia, unspecified (principal); M25.541 Pain in joints of right hand; Z13.0 Encounter for screening for diseases of the blood and blood-forming organs and certain disorders involving the immune mechanism

== ENCOUNTER → 2024-03-09 | Outpatient (REF) | payer OTHER ==
[2024-03-09 15:49] LABS: APPEARANCE, URINE CLOUDY (CLEAR); BACTERIA, URINE AUTO 1+ (NEGATIVE); BILIRUBIN, URINE AUTO NEGATIVE (NEGATIVE); BLOOD, URINE BLOOD 3+ (NEGATIVE); COLOR, URINE YELLOW (YELLOW); GLUCOSE, URINE (UA) AUTO NEGATIVE (NEGATIVE); KETONE, URINE AUTO NEGATIVE (NEGATIVE); LEUKOCYTE ESTERASE, URINE AUTO 3+ (NEGATIVE); MUCUS, URINE SMALL (NEGATIVE); NITRITE, URINE AUTO POSITIVE (NEGATIVE); PROTEIN, URINE AUTO 2+ mg/dL (NEGATIVE); RBC, URINE AUTO 59 /HPF (0-3); SPECIFIC GRAVITY URINE AUTO 1.012 (1.002-1.035); SQUAMOUS EPITHELIAL CELL UR AU 1 /HPF (0-6); UROBILINOGEN, URINE AUTO 0.2 mg/dL (0.0-2.0); WBC, URINE AUTO TNTC /HPF (0-3)
== END ==
LOC: M LAB REF 14:56
PROVIDERS: ATTEND Physician Assistant
DX: N39.0 Urinary tract infection, site not specified (principal)

== ENCOUNTER → 2025-03-06 | Outpatient (CLI) | payer OTHER ==
[2025-03-06 11:25] LABS: ALT/SGPT < 9 U/L (7.0-40); AST/SGOT 14 U/L (<34); CALCIUM LEVEL 9.8 MG/DL (8.5-10.1); CARBON DIOXIDE LEVEL 30 MMOL/L (20-31); CHLORIDE LEVEL 105 MMOL/L (98-107); CHOLESTEROL LEVEL 245 MG/DL (<200); CHOLESTEROL RISK RATIO 2.79 (<5); CREATININE FOR GFR 0.74 MG/DL (0.55-1.30); GLOMERULAR FILTRATION RATE > 90.0 (>51); LDL CHOLESTEROL 138.0 MG/DL (<100); NON-HDL-C 157.4 MG/DL; POTASSIUM SERUM 4.6 MMOL/L (3.5-5.1); SODIUM LEVEL 145 MMOL/L (136-145); TRIGLYCERIDES LEVEL 97 MG/DL (<150)
[2025-03-06 12:27] LABS: ESTIMATED AVERAGE GLUCOSE 105.0 MG/DL (60-110)
== END ==
LOC: M PLALAB 07:14
DX: Z13.1 Encounter for screening for diabetes mellitus (principal)